=== PATIENT | female | born 1990 | race Caucasian/White ===

== ENCOUNTER → 2021-03-16 17:40 | Outpatient (BNVA) | payer MEDICARE, MEDICAID, SELFPAY | PROVIDERS: Visit Provider Nurse Practitioner Family | DX: Z32.00 Encounter for pregnancy test, result unknown (principal); Z97.5 Presence of (intrauterine) contraceptive device; Z30.011 Encounter for initial prescription of contraceptive pills | CPT/HCPCS: 81025 ==

== ENCOUNTER 2022-04-08 22:08 | Inpatient (IN) | payer MEDICARE, OTHER, MEDICAID, SELFPAY ==
[2022-04-08 22:15] VITALS: BP 115/100; PULSE 119; RESP 16; TEMP 36.8; O2SAT 96; BMI 33.4
--- NOTE | 2022-04-08 22:37 | ED.C_ITS ---
Documented by User: Bill Fritz DO 04/08/22 22:44 HPI - Psych General: Chief Complaint: Psychiatric Symptoms Stated Complaint: psych eval Time Seen by Provider: 04/08/22 22:16 Source: patient Mode of arrival: ambulatory Limitations: no limitations History of Present Illness: This patient was referred to the emergency department for mental health evaluation. She allegedly stays in a long-term care facility that is managed by her family members. She states that she has had increasing intensity of voices that are telling her to harm herself or harm others. She had a prior history of auditory hallucinations. She has had episodes where she is cut herself in the past. She states that she has no specific plan on harming her self but she is feeling more stressed and anxious because of the intensity of her hallucinations. She states she has been sleeping normally eating normally and has been taking the medications that are previously prescribed for her. She sees a mental health clinician on a regular basis. MD complaint: suicidal ideation Duration: getting worse Relieving factors: medication Associated psychiatric symptoms: suicidal ideation and auditory hallucinations Associated symptoms: Reports auditory hallucinations, depression and suicidal ideation If self harm: admits thoughts of self harm Review of Systems Const: Denies: fever(s) or chills Eyes: Denies: change in vision ENMT: Denies: throat pain, odynophagia, nasal discharge or nasal congestion Card: Denies: chest pain, palpitations or irregular heart rhythm Resp: Denies: dyspnea, productive cough or non-productive cough GI: Denies: abdominal pain, nausea or vomiting : Denies: flank pain, difficulty voiding, dysuria or urinary frequency Musc: Denies: neck pain, back pain or extremity pain Skin/Breast: Denies: rash, pruritus or erythema Neuro: Denies: headache(s), numbness in extremities, weakness in extremities, sensory changes or vertigo Psych: Reports: anxiety, depression, mood swings, auditory hallucinations and suicidal ideation Wily/Lymph: Denies: easy bruising or easy bleeding PFSH ED PFSH: Medical History Nightmares Nocturnal enuresis 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 She answers questions in a month monotonous voice. She makes fleeting eye contact. She is cooperative. Const: COMMON NORMALS: average body habitus and alert NUTRITIONAL APPE ARANCE: overweight ORIENTATION/CONSCIOUSNESS: Yes awake, Yes oriented to person and Yes oriented to place HENMT: COMMON NORMALS: normocephalic, moist oral mucous membranes and oropharynx normal HEAD & SCALP: normocephalic FACE & SINUS: normal facial exam Eye: COMMON NORMALS: Equal, round and reactive pupils present, EOMs intact bilaterally and conjunctivae normal CONJUNCTIVA: Yes conjunctivae normal PUPIL: Yes Equal, round and reactive pupils present Neck/C-Spine: COMMON NORMALS: full ROM and no lymphadenopathy Chest: COMMONS NORMALS: normal inspection of the chest Resp: COMMON NORMALS: normal respiratory effort, No retractions and No use of accessory muscles EFFORT & INSPECTION: Yes able to speak in complete sentences Cardio: COMMON NORMALS: regular rate, regular rhythm and Peripheral pulses 2+ throughout RATE: regular rate RHYTHM: regular rhythm PERIPHERAL PULSES: Peripheral pulses 2+ throughout GI: COMMON NORMALS: Normal to inspection, nondistended, normoactive bowel sounds present Back/Pelvis: COMMON NORMALS: thoracic and lumbar spine normal to inspection, no thoracic nor lumbar tenderness and thoraco-lumbar ROM normal Extremity: COMMON NORMALS: normal to inspection, full ROM, capillary refill normal and no pedal edema Neuro: COMMON NORMALS: moves all extremities, no focal motor deficits, no sensory deficits noted and gait normal SENSORIUM/ORIENTATION: Yes alert, Yes oriented to person and Yes oriented to place Psych: ATTITUDE: Yes Withdrawn affect present and Yes evasive ACTIVITY /MOTOR BEHAVIOR: Yes psychomotor agitation, Yes restless and Yes Avoids eye contact (attititude/behavior) SPEECH: Yes soft MOOD & AFFECT: Yes depressed mood and Yes Flat affect present THOUGHT CONTENT: Yes Suicidality present and Yes Hallucination(s) present auditory ATTENTION/CONCENTRATION: Yes attention grossly intact INSIGHT: Limited insight present (Psych) Skin: COMMON NORMALS: no rashes or lesions noted, no wounds and turgor normal GENERAL SKIN EXAM: no rashes or lesions noted and turgor normal Course Reevaluation(s): Reevaluation #1: Intake examination and interview was undertaken and screening laboratories were obtained. Patient will be turned over to Dr. Calderón for disposition. Time: 22:43 Vital Signs: Vital signs: Vital Signs Temperature 98 F 04/09/22 14:00 Pulse Rate 106 H 04/09/22 14:00 Respiratory Rate 16 04/09/22 14:00 Blood Pressure 122/76 04/09/22 14:00 Pulse Oximetry 97 04/09/22 14:00 Oxygen Delivery Me thod 04/09/22 14:00 MDM - Psych Medical Decision Making Patient with a history of known mental health disorder characterized as bipolar with schizophrenic features was referred to the emergency department from her long-term care facility because of increased intensity of auditory hallucinations and suicidal ideations. She will be medically screened and at that point determine if she is suitable to be admitted for further mental health evaluation. Her suicidality is certainly unclear and will need additional evaluation. Lab Data : 04/08/22 22:49 04/08/22 22:49 Laboratory Results WBC 10.5 10^3/uL (4.0-10.0) H 04/08/22 22:49 RBC 4.54 10^6/uL (4.1-5.3) 04/08/22 22:49 Hgb 13.4 g/dL (11.5-15.3) 04/08/22 22:49 Hct 42.5 % (37.0-47.0) 04/08/22 22:49 MCV 93.6 fl (81-99) 04/08/22 22:49 MCH 29.5 pg (28.0-34.0) 04/08/22 22:49 MCHC 31.5 g/dL (30.0-36.0) 04/08/22 22:49 RDW 12.8 % (12.1-15.1) 04/08/22 22:49 Plt Count 239 10^3/cmm (130-400) 04/08/22 22:49 MPV 9.8 fL (7.4-10.4) 04/08/22 22:49 Neut % (Auto) 62.7 % 04/08/22 22:49 Lymph % (Auto) 26.9 % 04/08/22 22:49 [place] % (Auto) 9.3 % 04/08/22 22:49 Eos % (Auto) 0.2 % 04/08/22 22:49 Baso % (Auto) 0.5 % 04/08/22 22:49 Neut # (Auto) 6.61 10^3/uL (1.8-7.7) 04/08/22 22:49 Lymph # (Auto) 2.8 10^3/uL (0.8-4.8) 04/08/22 22:49 [place] # (Auto) 1.0 10^3/uL (0.2-0.9) H 04/08/22 22:49 Eos # (Auto) 0.0 10^3/uL (0.0-0.8) 04/08/22 22:49 Baso # (Auto) 0.1 10^3/uL (0.0-0.1) 04/08/22 22:49 Nucleated RBC % (auto) 0 % 04/08/22 22:49 Nucleated RBCs # 0.0 /100WBC 04/08/22 22:49 Sodium 141 mmol/L (136-145) 04/08/22 22:49 Potassium 4.0 mmol/L (3.5-5.1) 04/08/22 22:49 Chloride 106 mmol/L (98-107) 04/08/22 22:49 Carbon Dioxide 23 mmol/L (22-29) 04/08/22 22:49 Anion Gap 16.0 (5-19) 04/08/22 22:49 BUN 14 mg/dL (6-20) 04/08/22 22:49 Creatinine 0.8 mg/dL (0.5-0.9) 04/08/22 22:49 GFR Calculation 82.1 mL/min (90-130) L 04/08/22 22:49 Glucose 119 mg/dL (65-115) H 04/08/22 22:49 Calculated Osmolality 294 mOsm/kg (285-295) 04/08/22 22:49 Calcium 9.0 mg/dL (8.5-10.5) 04/08/22 22:49 Total Bilirubin 0.2 mg/dL (0.15-1.2) 04/08/22 22:49 AST 13 U/L (0-32) 04/08/22 22:49 ALT 11 U/L (0-33) 04/08/22 22:49 Alkaline Phosphatase 63 U/L (35-105) 04/08/22 22:49 Total Protein 6.7 g/dL (6.6-8.7) 04/08/22 22:49 Albumin 4.0 g/dL (3.5-5.2) 04/08/22 22:49 Globulin 2.7 g/dL (1.3-4.6) 04/08/22 22:49 HCG, Qual Negative (Negative) 04/08/22 22:35 Salicylates < 0.3 mg/dL (3-10) L 04/08/22 22:49 Acetaminophen < 5.0 ug/mL (10-30) L 04/08/22 22:49 Valproic Acid 65.0 ug/mL (50-100) 04/08/22 22:49 Hanson 0.9 mmol/L (0.6-1.2) 04/08/22 22:49 Discharge Plan Discharge Patient Disposition: Admitted As Inpatient Admit Provider: Lincoln Hightower Clinical Impression: Suicidal ideation, Bipolar disorder Condition: Stable Coding Level of Care Code ED Pediatric Sports Medicine Specialist for Chg Fwd Exam Comprehensive Documented by User: Renny Calderón DO 04/09/22 14:40 HPI - Psych General: Chief Complaint: Psychiatric Symptoms Stated Complaint: psych eval Time Seen by Provider: 04/08/22 22:16 PFS ED PFSH: Medical History Nightmares Nocturnal enuresis 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 Psychiatric care Schizophrenia, chronic condition Social History Smoking and tobacco status: former smoker Alcohol intake: former Course Vital Signs: Vital signs: Vital Signs Temperature 98 F 04/09/22 14:00 Pulse Rate 106 H 04/09/22 14:00 Respiratory Rate 16 04/09/22 14:00 Blood Pressure 122/76 04/09/22 14:00 Pulse Oximetry 97 04/09/22 14:00 Oxygen Delivery Me thod 04/09/22 14:00 MDM - Psych Medical Decision Making Patient with a history of known mental health disorder characterized as bipolar with schizophrenic features was referred to the emergency department from her long-term care facility because of increased intensity of auditory hallucinations and suicidal ideations. She will be medically screened and at that point determine if she is suitable to be admitted for further mental health evaluation. Her suicidality is certainly unclear and will need additional evaluation. Spoke with psychiatry. This patient has a legal guardian, who wishes the patient to be evaluated inpatient by psychiatry. She is clearly hallucinating. She has a long history of mental health disease. At one point, she became agitated. She actually tried to elope. She was nonviolent in doing so. She was given an injection of Geodon and midazolam following this with good results. She rested peacefully following that. Medically, she is stable. As she had made suicidal statements, is clearly mentally unwell, and at risk for self harm given her past history, she will need to stay for psychiatric evaluation. Psychiatry agrees. Lab Data : 04/08/22 22:49 04/08/22 22:49 Laboratory Results WBC 10.5 10^3/uL (4.0-10.0) H 04/08/22 22:49 RBC 4.54 10^6/uL (4.1-5.3) 04/08/22 22:49 Hgb 13.4 g/dL (11.5-15.3) 04/08/22 22:49 Hct 42.5 % (37.0-47.0) 04/08/22 22:49 MCV 93.6 fl (81-99) 04/08/22 22:49 MCH 29.5 pg (28.0-34.0) 04/08/22 22:49 MCHC 31.5 g/dL (30.0-36.0) 04/08/22 22:49 RDW 12.8 % (12.1-15.1) 04/08/22 22:49 Plt Count 239 10^3/cmm (130-400) 04/08/22 22:49 MPV 9.8 fL (7.4-10.4) 04/08/22 22:49 Neut % (Auto) 62.7 % 04/08/22 22:49 Lymph % (Auto) 26.9 % 04/08/22 22:49 [place] % (Auto) 9.3 % 04/08/22 22:49 Eos % (Auto) 0.2 % 04/08/22 22:49 Baso % (Auto) 0.5 % 04/08/22 22:49 Neut # (Auto) 6.61 10^3/uL (1.8-7.7) 04/08/22 22:49 Lymph # (Auto) 2.8 10^3/uL (0.8-4.8) 04/08/22 22:49 [place] # (Auto) 1.0 10^3/uL (0.2-0.9) H 04/08/22 22:49 Eos # (Auto) 0.0 10^3/uL (0.0-0.8) 04/08/22 22:49 Baso # (Auto) 0.1 10^3/uL (0.0-0.1) 04/08/22 22:49 Nucleated RBC % (auto) 0 % 04/08/22 22:49 Nucleated RBCs # 0.0 /100WBC 04/08/22 22:49 Sodium 141 mmol/L (136-145) 04/08/22 22:49 Potassium 4.0 mmol/L (3.5-5.1) 04/08/22 22:49 Chloride 106 mmol/L (98-107) 04/08/22 22:49 Carbon Dioxide 23 mmol/L (22-29) 04/08/22 22:49 Anion Gap 16.0 (5-19) 04/08/22 22:49 BUN 14 mg/dL (6-20) 04/08/22 22:49 Creatinine 0.8 mg/dL (0.5-0.9) 04/08/22 22:49 GFR Calculation 82.1 mL/min (90-130) L 04/08/22 22:49 Glucose 119 mg/dL (65-115) H 04/08/22 22:49 Calculated Osmolality 294 mOsm/kg (285-295) 04/08/22 22:49 Calcium 9.0 mg/dL (8.5-10.5) 04/08/22 22:49 Total Bilirubin 0.2 mg/dL (0.15-1.2) 04/08/22 22:49 AST 13 U/L (0-32) 04/08/22 22:49 ALT 11 U/L (0-33) 04/08/22 22:49 Alkaline Phosphatase 63 U/L (35-105) 04/08/22 22:49 Total Protein 6.7 g/dL (6.6-8.7) 04/08/22 22:49 Albumin 4.0 g/dL (3.5-5.2) 04/08/22 22:49 Globulin 2.7 g/dL (1.3-4.6) 04/08/22 22:49 HCG, Qual Negative (Negative) 04/08/22 22:35 Salicylates < 0.3 mg/dL (3-10) L 04/08/22 22:49 Acetaminophen < 5.0 ug/mL (10-30) L 04/08/22 22:49 Valproic Acid 65.0 ug/mL (50-100) 04/08/22 22:49 Hanson 0.9 mmol/L (0.6-1.2) 04/08/22 22:49 Discharge Plan Discharge Patient Disposition: Admitted As Inpatient Admit Provider: Lincoln Hightower Clinical Impression: Suicidal ideation, Bipolar disorder Condition: Stable Coding Level of Care Code ED Pediatric Sports Medicine Specialist for Chg Fwd Exam Comprehensive
--- NOTE | 2022-04-08 23:00 | PC.NURSE ---
Pt began pacing in room. Security and this RN notified and to room. Pt in corner of room, hit head on wall. NO obvious injury noted. Pt has red toure to left forearm. When questioned about them she pulled out a small piece of plastic and handed it to security. Security checked for anything further. notified. Orders received. Pt able to be verbally deescalated. Requested something to calm down.
[2022-04-08 23:01] LABS: Basophils # 0.1 10^3/uL (0.0-0.1); Basophils % 0.5 %; Eosinophils % 0.2 %; Hematocrit 42.5 % (37.0-47.0); Hemoglobin 13.4 g/dL (11.5-15.3); Lymphocytes # 2.8 10^3/uL (0.8-4.8); Lymphocytes % 26.9 %; Mean Corpuscular HGB Conc 31.5 g/dL (30.0-36.0); Mean Corpuscular Hemoglobin 29.5 pg (28.0-34.0); Mean Corpuscular Volume 93.6 fl (81-99); Mean Platelet Volume 9.8 fL (7.4-10.4); Monocytes % 9.3 %; Neutrophils # 6.61 10^3/uL (1.8-7.7); Neutrophils % 62.7 %; Nucleated Red Blood Cells % 0 %; Platelet Count 239 10^3/cmm (130-400); Red Blood Count 4.54 10^6/uL (4.1-5.3); Red Cell Distribution Width 12.8 % (12.1-15.1); White Blood Count 10.5 10^3/uL (4.0-10.0)
[2022-04-08] MEDS: OLANZapine 5 mg ODT PO (23:06)
[2022-04-08 23:09] LABS: HCG Qualitative Urine. Negative (Negative)
[2022-04-08 23:21] LABS: Alanine Aminotransferase 11 U/L (0-33); Alkaline Phosphatase 63 U/L (35-105); Aspartate Amino Transferase 13 U/L (0-32); Blood Urea Nitrogen 14 mg/dL (6-20); Carbon Dioxide 23 mmol/L (22-29); Chloride 106 mmol/L (98-107); Globulin 2.7 g/dL (1.3-4.6); Glomerular Filtration Rate 82.1 mL/min (90-130); Glucose 119 mg/dL (65-115); Osmolality Calculated 294 mOsm/kg (285-295); Sodium 141 mmol/L (136-145); Total Bilirubin 0.2 mg/dL (0.15-1.2); Total Protein 6.7 g/dL (6.6-8.7)
[2022-04-08 23:22] LABS: Acetaminophen < 5.0 ug/mL (10-30); Salicylate < 0.3 mg/dL (3-10)
--- NOTE | 2022-04-09 00:23 | PC.NURSE ---
Pt getting more anxious. Wants to go home. Family contacted to request POFareed. notified
[2022-04-09] MEDS: ziprasidone 20 mg/mL SDV IM (00:48)
[2022-04-09] MEDS: midazolam 1 mg/mL INJ 2 mL 2 MG IM (00:48)
--- NOTE | 2022-04-09 00:50 | PC.NURSE ---
Spoke with mother who is POA. States she wants pt admitted. Pt did admit to hearing voices telling her to hurt other people and herself. Pt has now attempted to run two times. Security remains at bedside and pt is redirected.
[2022-04-09 01:27] VITALS: BP 125/81; PULSE 100; RESP 16; O2SAT 95
[2022-04-09 01:33] LABS: Lithium 0.9 mmol/L (0.6-1.2)
[2022-04-09 02:23] VITALS: BP 131/84; PULSE 106; RESP 18; O2SAT 98
[2022-04-09 06:00] VITALS: BP 148/94; PULSE 118; RESP 24; TEMP 36.6; O2SAT 97
[2022-04-09] MEDS: fixodent 39 gm Tube 1 APPLIC DENTAL (06:02)
[2022-04-09] MEDS: diphenhydrAMINE 50 mg/mL SDV 1mL IM (07:06)
[2022-04-09] MEDS: haloperidol inj 5 mg/mL INJ 1 mL IM (07:07)
[2022-04-09] MEDS: LORazepam 2 mg/mL INJ 1 mL IM (07:07)
--- NOTE | 2022-04-09 07:08 | PC.NURSE ---
Attempted to call Guardian multiple times. Spoke with guardian at appx [phone]. guardian verbalized consent over telephone for any medications needed and to continue current medications. [facility] information to [phone] atttoña burkett for signatures.
--- NOTE | 2022-04-09 07:50 | PC.NURSE ---
Pt began reporting auditory hallucinations telling her to hurt herself. She found a bendy pen and began attempting to scratch her arms with it. this nurse got the pen from her. Patient refuses to contract for safety. pt placed on 1:1 after contacting house calls nurse practitioner.
[2022-04-09] MEDS: metoprolol succinate ER (24 HR) 50 mg Tablet PO (09:31)
[2022-04-09] MEDS: prenatal vitamin Capsule 1 CAP PO (09:31)
[2022-04-09] MEDS: chlorPROMazine 50 mg Tablet PO ×3 (09:31→21:15)
[2022-04-09] MEDS: cyanocobalamin 1,000 mcg Tablet 500 MCG PO (09:32)
[2022-04-09] MEDS: docusate sodium 100 mg Capsule PO ×2 (09:32→17:26)
[2022-04-09] MEDS: cholecalciferol (vitamin D3) 1,000 unit Tablet 1000 UNIT PO (09:32)
[2022-04-09] MEDS: levothyroxine 25 mcg Tablet PO (09:32)
[2022-04-09] MEDS: pantoprazole DR 40 mg Tablet PO (09:32)
[2022-04-09] MEDS: cloZAPine 100 mg Tablet 200 MG PO ×2 (09:35→21:14)
[2022-04-09] MEDS: divalproex DR 250 mg Tablet 750 MG PO ×2 (09:35→21:14)
[2022-04-09] MEDS: BuSPIRONE 10 mg Tablet PO ×2 (09:35→21:15)
[2022-04-09] MEDS: lithium carbonate ER 450 mg Tablet PO ×2 (09:35→21:14)
[2022-04-09] MEDS: oxybutynin 5 mg Tablet PO ×2 (09:37→21:18)
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
--- NOTE | 2022-04-09 12:40 | PC.NURSE ---
NEW ORDER PT CONTINUES TO DENYSI/HI AND AVH AT THIS TIME. SHE CONTINUES TO BE CONTRACTED FOR SAFETY. NEW ORDERS RECEIVED TO DISCONTINUE ONE TO ONE SITTER. SITTER WAS REMOVED 1240 PM. SUPPORT WAS VOICED
[2022-04-09] MEDS: benztropine 1 mg Tablet PO (12:49)
[2022-04-09] MEDS: hyDROXYzine 25 mg Capsule 50 MG PO (13:37)
[2022-04-09] MEDS: OLANZapine 5 mg ODT PO (13:37)
--- NOTE | 2022-04-09 13:40 | PC.NURSE ---
PRN MEDICATIONS PT WAS MOVED TO 155-2 DUE TO EXIT SEEKING. PT DID ATTEMPT TO GRAB DOOR WHEN STAFF WAS LEAVING. PT WAS ASSISTED BACK TO ROOM. PHYSICIAN WAS NOTIFIED OF EXIT SEEKING BEHAVIORS. PT THEN AGAIN RAN DOWN THE ORTIZ TOWARDS THE DOUBLE DOORS WHEN THEY WERE OPENED AGAIN FOR STAFF TO LEAVE. PT WAS UNABLE TO REACH DOOR. DOOR WAS SECURED AND PT WAS ASSISTED TO 155/2 TO SOUTH SIDE WHERE PT WILL NOT BE ABLE TO EXIT FACILITY. ONCE PT WAS MOVE PT REPORTED HIGH ANXIETY. ZYDIS 5 MG AND VISTARIL 50 MG WAS GIVEN PO ORDERED FOR SEVERE ANXIETY. PT WAS GIVEN JUICE AND A SNACK REQUESTED.
[2022-04-09 14:00] VITALS: BP 122/76; PULSE 106; RESP 16; TEMP 36.6; O2SAT 97
--- NOTE | 2022-04-09 14:46 | PC.NURSE ---
PT CAME TO NURSES STATION ON THREE DIFFERENT OCCASIONS WITH THE BENDABLE PENS. PT GAVE THEM TO STAFF WILLINGLY. PT TOLD STAFF SHE HAS AH TELLING HER TO HARM HERSELF. PT STATES SHE IS IGNORING THEM AND WILL NOT HARM HERSELF. PT CONTRACTS FOR SAFETY. PT IS SITTING ON THE BENCH BY THE NURSES STATION.
[2022-04-09] MEDS: haloperidol 5 mg Tablet PO (15:20)
--- NOTE | 2022-04-09 15:21 | PC.NURSE ---
PRN MEDICATION PT CONTINUES TO STATE I WANNA HURT MYSELF, THIS RN TO ROOM AND SPOKE IN DEPTH, PT WAS UNABLE TO CONTRACT FOR SAFETY. DUE TO PT BEING UNABLE TO CONTRACT FOR SAFETY PT WAS PLACED BACK ON A ONE ON ONE. DR. HELTON NOTIFIED OF. NEW ORDERS RECEIVED TO START ON AT 1525. ORDERS PLACED.
--- NOTE | 2022-04-09 15:27 | PC.NURSE ---
15 MINUTE CHECKS WILL CONTINUE ON VIA PAPER
--- NOTE | 2022-04-09 16:36 | PC.NURSE ---
PRN MEDICATION PT CONTINUES TO STATES SHE IS HEARING VOICES TELLING HER TO CUT SELF. REPORTS INCREASED ANXIETY WELL. PT WAS GIVEN HALDOL 5 MG ORDERED WITH LITTLE EFFECT NOTED.
[2022-04-09] MEDS: efferdent effervescent 1 EACH DENTAL (20:05)
[2022-04-09 20:19] VITALS: BP 116/80; PULSE 96; RESP 18; TEMP 36.4; O2SAT 95
[2022-04-09] MEDS: LORazepam 0.5 mg Tablet PO (21:14)
[2022-04-09] MEDS: trazodone 50 mg Tablet PO (21:14)
[2022-04-09] MEDS: amlodipine 5 mg Tablet PO (21:15)
[2022-04-09] MEDS: prazosin 1 mg Capsule 4 MG PO (21:15)
[2022-04-10 06:00] VITALS: BP 110/78; PULSE 85; RESP 16; TEMP 36.8; O2SAT 97
--- NOTE | 2022-04-10 06:23 | W.PM.NPUPNS ---
Subjective NPU Subjective: Patient presents today reporting that she is doing better. She denies any suicidal thoughts or intent. We discussed the fact that we would need to observe her off of one-to-one before we can consider sending her home and so we would need to have a pattern of behaviors that suggest that that is safe. She denied any specific issues at this time and there are no negative reports from the one-to-one provider. Mental Status Exam MSE Comments: This is an obese white female in hospital scrubs with limited grooming and eye contact. No abnoraml movements except for psychomotor retardation. Mostly cooperative with exam in mild distress. Speech is limited and child like. Mood described as okay, affect is subdued. Thought process, organized. Thought content: patient denied suicidal or homicidal ideation, reports paranoia but no delusions noted and endorses auditory hallucinations but no visual hallucinations. Attention and concentration are intact and memory appeared mostly reliable but none were formally tested. She is alert and oriented three times. Insight and judgment impaired. Impulse control is impaired. Intellectual ability is limited versus impaired. Vitals/I&O/Wt Last Vital Signs Temp 97.6 F 04/09/22 20:19 Pulse 96 04/09/22 20:19 Resp 18 04/09/22 20:19 BP 116/80 04/09/22 20:19 Pulse Ox 95 04/09/22 20:19 O2 Del Method 04/09/22 14:00 Weight last 48 hrs Weight 93.894 kg Data NPU : 04/08/22 22:49 04/08/22 22:49 A&P Assessment and plan (1) Suicidal ideation: Status: Acute (2) Bipolar disorder: Status: Acute (3) Nocturnal enuresis: Status: Acute (4) Nightmares: Status: Acute (5) Intellectual disability: Status: Acute Plan This is a 32 year old white female with a history of trauma, auditory hallucinations and genetic loading for mental health and addiction issues who presents with worsening auditory hallucinations reporting these voices encourage suicidal and homicidal ideation, active suicidal ideation and paranoia but reporting she believes she is fine to be discharged at this time. 1. Continue current medications 2. Encourage individual, group and milieu therapy 3. Continue one-to-one for safety given her intermittent reports of inability to keep her self safe on the unit. 4. Clearly appears that the major challenge here is intellectual disability versus borderline intellectual ability plus the presence of borderline personality disorder. We will need to understand if this is a regular pattern or just props up whether something specifically triggered this current pattern. Involuntary Hold Information 96 Hour Hold: 96 Hour Involuntary Admission: No Attestations NPU Medical Necessity Statement*: Inpatient hospitalization is medically necessary and the clinically appropriate intervention at this time. We will monitor medications and make changes as indicated. Likely length of stay is three to five days. Coding Level of Care Code Acute Warp Knitter for [facility] F[facility] Diagnoses Suicidal ideation R45.851 Bipolar disorder F31.9 Nocturnal enuresis N39.44 Nightmares F51.5 Intellectual disability F79
[2022-04-10] MEDS: buPROPion XL (24 HR) 300 mg Tablet PO (06:25)
[2022-04-10] MEDS: BuSPIRONE 10 mg Tablet PO (10:15)
[2022-04-10] MEDS: pantoprazole DR 40 mg Tablet PO (10:15)
[2022-04-10] MEDS: lithium carbonate ER 450 mg Tablet PO (10:15)
[2022-04-10] MEDS: oxybutynin 5 mg Tablet PO (10:15)
[2022-04-10] MEDS: prenatal vitamin Capsule 1 CAP PO (10:15)
[2022-04-10] MEDS: docusate sodium 100 mg Capsule PO ×2 (10:15→17:23)
[2022-04-10] MEDS: cloZAPine 100 mg Tablet 200 MG PO (10:15)
[2022-04-10] MEDS: fixodent 39 gm Tube 1 APPLIC DENTAL (10:16)
[2022-04-10] MEDS: cyanocobalamin 1,000 mcg Tablet 500 MCG PO (10:16)
[2022-04-10] MEDS: metoprolol succinate ER (24 HR) 50 mg Tablet PO (10:16)
[2022-04-10] MEDS: chlorPROMazine 50 mg Tablet PO ×2 (10:16→15:09)
[2022-04-10] MEDS: levothyroxine 25 mcg Tablet PO (10:16)
[2022-04-10] MEDS: divalproex DR 250 mg Tablet 750 MG PO (10:25)
[2022-04-10] MEDS: cholecalciferol (vitamin D3) 1,000 unit Tablet 1000 UNIT PO (10:26)
[2022-04-10] MEDS: haloperidol inj 5 mg/mL INJ 1 mL IM ×2 (12:28→21:23)
--- NOTE | 2022-04-10 12:34 | PC.NURSE ---
12:28 administered 5mg IM Haldol to Right deltoid, pt is experiencing Auditory commands to harm herself. Pt did run away from staff before administering the medication.
[2022-04-10 14:00] VITALS: BP 108/79; PULSE 88; RESP 14; TEMP 36.6; O2SAT 96
[2022-04-10] MEDS: benztropine 1 mg Tablet PO (15:09)
[2022-04-10] MEDS: acetaminophen 325 mg Tablet 650 MG PO (16:53)
--- NOTE | 2022-04-10 18:21 | PC.NURSE ---
PT PLACED BACK TO ONE ON ONE SITTER DUE TO BEHAVIORS TODAY, PT REFUSING PO MEDS, BOLTING OUT THE UNIT DOORS, MAKING STATEMENTS TO THIS NURSE AND OTHER STAFF ABOUT JUST WANTING TO HANG HERSELF. PT KEEPS RUNNING INTO ROOM AND SHUTTING DOOR, PT WILL NOT FOLLOW DIRECTIONS, THIS NURSE WALKED IN ON PT AND SHE HAD SHEET WRAPPED AROUND NECK, ALL BEDDING REMOVED FROM BEDROOM AND PT INSTRUCTED TO SIT ON BENCH BY NURSES STATION UNTILL SITTER ARRIVED, PT THEN CAME TO NURSES STATION AND STATES SHE FEELS LIKE TAKING OFF BRA AND HANGING HERSELF, AFTER DISCUSSION FOR 30MIN WITH PT SHE FINALLY AGREED TO REMOVE BRA. PT ROOM RECHECKED AND PT SCRUB POCKET RECHECKED FOR ANY MATERIALS TO SELF HARM
[2022-04-10] MEDS: efferdent effervescent 1 EACH DENTAL (19:12)
[2022-04-10 19:46] VITALS: BP 111/78; PULSE 98; RESP 16; TEMP 36.9; O2SAT 96
[2022-04-10] MEDS: LORazepam 2 mg/mL INJ 1 mL IM (21:22)
[2022-04-10] MEDS: diphenhydrAMINE 50 mg/mL SDV 1mL IM (21:23)
--- NOTE | 2022-04-10 22:00 | PC.NURSE ---
AT 2114, VARUN CALLED FOR ASSISTANCE TO THIS PT'S ROOM. PT HAD WENT INTO HER BATHROOM TO GO TO THE BATHROOM . PT DID NOT COME OUT OF THE BATHROOM AFTER URINATING SO CORRESPONDENCE ANALYST CHECKED ON PT BY LOOKING UNDER THE BATHROOM DOOR AND NOTING PT SITTING ON THE FLOOR. CORRESPONDENCE ANALYST OPENED THE BATHROOM DOOR TO FIND PT SITTING CROSS LEGGED ON THE FLOOR WITH THE SHOWER TIFFANY WRAPPED LOOSLY AROUND HER NECK. CORRESPONDENCE ANALYST YELLED OUT FOR ADDITIONAL STAFF ASSISTANCE. CHARGE NURSE AND OTHER STAFF ARRIVED TO ROOM, FINDING PT STILL SITTING ON THE FLOOR, VARUN HAD REMOVED SHOWER TIFFANY FROM THE PT. PT WAS ASKED WHY ARE YOU DOING THIS? BY THE CHARGE NURSE. PT STATED SHE WANTED TO GO HOME. ATTEMPT TO EDUCATE PT THAT THIS TYPE OF BEHAVIOR IS NOT GOING TO SEND HER HOME. PT HAS BEEN REFUSING HER SCHEDULED ORAL MEDICATIONS ALL DAY. CHARGE NURSE TRIED SEVERAL TIMES TO PLEASE TAKE HER MEDICATIONS, TO WHICH PT ANSWERED NO EACH TIME. PT WAS THEN GIVEN THE CHOICE OF EITHER TAKING HER SCHEDULED MEDICATIONS OR RECEIVING THE B52 SHOTS. PT AGAIN STATED SHE WAS NOT GOING TO TAKE HER ORAL MEDICATIONS SO CHARGE NURSE DELEGATED ANOTHER STAFF MEMBER TO PREPARE THE IM MEDICATIONS. SECURITY WAS CALLED FOR STANDBY. AT 2122, BENADRYL 50MG IM, ATIVAN 2MG IM AND HALDOL 5MG IM GIVEN WITH OUT DIFFICULTY. PT IS RESTING QUIETLY IN HER ROOM AT THIS TIME. BUSINESS PROCESS SPECIALIST NOTIFIED. DOCTOR HELTON NOTIFIED BY CHARGE NURSE.
--- NOTE | 2022-04-10 23:29 | NUR.SHIFT ---
Pt presents irritable and uncooperative. pt refusing nighttime medication. Pt verbalizing voices telling her to kill myself . Pt reports I just want to go home. This nurse was able to get pt to talk about herself a bit. Pt reports her brother a month or so ago and that is when the voices got bad. I had another brother that before, so now I have two brothers gone and I want to see them. Pt reports multiple family member working at the facility she lives at and states, I get to see them alot, but I really want to go home to my mom's house. Pt went into restroom and grabbed the shower curtain. sitter was attempting to get it away from her and staff all responded. pt coaxed to let go of the shower curtain but still refused scheduled medications. pt given choice of IM medication or oral medication. pt refused oral. pt then given the option of having im medication in arms or hips. pt chose hips. ims given without a hold. 1:[address] during entire situation and currently.
[2022-04-11] MEDS: buPROPion XL (24 HR) 300 mg Tablet PO (05:17)
[2022-04-11 06:00] VITALS: BP 121/84; PULSE 107; RESP 18; TEMP 36.4; O2SAT 97
[2022-04-11] MEDS: cyanocobalamin 1,000 mcg Tablet 500 MCG PO (08:52)
[2022-04-11] MEDS: cholecalciferol (vitamin D3) 1,000 unit Tablet 1000 UNIT PO (08:52)
[2022-04-11] MEDS: levothyroxine 25 mcg Tablet PO (08:52)
[2022-04-11] MEDS: chlorPROMazine 50 mg Tablet PO ×3 (08:52→19:58)
[2022-04-11] MEDS: prenatal vitamin Capsule 1 CAP PO (08:52)
[2022-04-11] MEDS: pantoprazole DR 40 mg Tablet PO (08:52)
[2022-04-11] MEDS: BuSPIRONE 10 mg Tablet PO ×2 (08:52→19:56)
[2022-04-11] MEDS: divalproex DR 250 mg Tablet 750 MG PO ×2 (08:53→19:55)
[2022-04-11] MEDS: cloZAPine 100 mg Tablet 200 MG PO ×2 (08:53→19:56)
[2022-04-11] MEDS: metoprolol succinate ER (24 HR) 50 mg Tablet PO (08:53)
[2022-04-11] MEDS: oxybutynin 5 mg Tablet PO ×2 (08:53→19:57)
[2022-04-11] MEDS: lithium carbonate ER 450 mg Tablet PO ×2 (08:53→19:58)
[2022-04-11] MEDS: docusate sodium 100 mg Capsule PO ×2 (08:54→16:51)
[2022-04-11] MEDS: acetaminophen 325 mg Tablet 650 MG PO ×2 (09:22→16:51)
--- NOTE | 2022-04-11 10:12 | PC.OT ---
OT EVALUATION ATTEMPTED. 1:1 SITTER REPORTS THAT THE PATIENT HAS JUST FALLEN ASLEEP. WILL ATTEMPT AGAIN AT A LATER TIME.
--- NOTE | 2022-04-11 10:47 | PC.NURSE ---
Nursing Assessment Patient was resting in bed. She stated she didn't sleep well last night. Overnight staff said she didn't sleep much either. Patient stated she was having suicidal ideations and had auditory hallucinations that were telling her to kill herself. When asked if she had a plan she stated, I don't want to talk about it. Denied any homicidal ideations or visual hallucinations. Patient appears to be withdrawn and reluctant to talk.
[2022-04-11] MEDS: loratadine 10 mg Tablet PO (10:49)
--- NOTE | 2022-04-11 11:41 | W.PM.NPUPNS ---
Subjective NPU Subjective: Patient is a 32-year-old white female with mild cognitive impairment on multiple psychiatric medications with poor impulse control admitted with suicidal thoughts and unsafe behavior while residing in the assisted. Patient had continue to engage in impulsive behavior has she attempted to run into the bathroom and pulled the shower curtain around her neck in an attempt to hang herself earlier today. She continued to be unable to describe having any particular feelings regarding her behavior. She did not express any desire to return to her assisted today. The staff had spoken briefly with the patient's legal guardian, her mother and discussed potential simplification of her medications as these medications had potential for causing more significant side effects with no clear noted benefit with the multiple psychiatric medications. She had continued difficulties with falling asleep despite her multiple medications. Mental Status Exam MSE Comments: This is an obese white female in hospital scrubs with poor grooming and minimal eye contact. No abnormal involuntary motor movements except for psychomotor retardation. Uncooperative with exam and in mild distress. Speech is limited and child like. Mood described as okay, affect is flat. Thought process, organized and superficial. Thought content: patient denied suicidal or homicidal ideation, reports paranoia but no delusions noted and endorses auditory hallucinations but no visual hallucinations. Attention and concentration is poor and memory appeared mostly reliable but none were formally tested. She is alert and oriented three times. Insight and judgment are feeble. Impulse control is impaired. Intellectual ability is commensurate with mild cognitive impairment. Vitals/I&O/Wt Last Vital Signs Temp 97.5 F L 04/11/22 06:00 Pulse 107 H 04/11/22 06:00 Resp 18 04/11/22 06:00 BP 121/84 04/11/22 06:00 Pulse Ox 97 04/11/22 06:00 O2 Del Method 04/10/22 14:00 Weight last 48 hrs Weight 95.527 kg Data NPU : 04/08/22 22:49 04/08/22 22:49 A&P Assessment and plan (1) Suicidal ideation: Status: Acute (2) Bipolar disorder: Status: Acute (3) Nocturnal enuresis: Status: Acute (4) Nightmares: Status: Acute (5) Intellectual disability: Status: Acute Plan This is a 32 year old white female with a history of trauma, auditory hallucinations and genetic loading for mental health and addiction issues who presents with worsening auditory hallucinations reporting these voices encourage suicidal and homicidal ideation, active suicidal ideation and paranoia but reporting she believes she is fine to be discharged at this time. 1. Continue current medications, with reduction of medications likely secondary to polypharmacy issues. She already has developed tardive dyskinesia. 2. Encourage individual, group and milieu therapy 3. Continue one-to-one for safety given her intermittent reports of inability to keep her self safe on the unit. Involuntary Hold Information 96 Hour Hold: 96 Hour Involuntary Admission: No Attestations NPU Medical Necessity Statement*: Inpatient hospitalization is medically necessary and the clinically appropriate intervention at this time. We will monitor medications and make changes as indicated. Likely length of stay is three to five days. Coding Level of Care Code Established Pt Acute Unclaimed Property Officer for Rob Matson Patient Type Established History Problem Focused Exam Problem Focused Medical Decision Making Straight Forward Diagnoses Suicidal ideation R45.851 Bipolar disorder F31.9 Nocturnal enuresis N39.44 Nightmares F51.5 Intellectual disability F79
[2022-04-11] MEDS: OLANZapine 5 mg ODT PO (13:11)
--- NOTE | 2022-04-11 13:29 | PC.NURSE ---
PT WAS AMBULATING DOWN ORTIZ, SAW THAT THE ACUTE SIDE DOOR WAS OPENED TO TAKE LUNCH TRAYS OUT. PT THEN RAN TOWARDS DOOR, SITTER RAN WITH HER. WHEN PT WAS RUNNING TOWARDS DOOR PT SLIPPED AND SLID INTO THE FLOOR. PT DID NOT GET OUT OF DOOR. RN ASSESSED PT AND OBSERVED SLIGHT REDNESS LEFT ELBOW. PT DID NOT HIT HEAD AND DENIES INJURY. VITALS FOLLOW 96.7, 85, 20, 97%RA AND 131/85. PT WAS ASSISTED UP WITH TWO ASSIST AND TAKEN TO BENCH TO SIT DOWN. PT WAS OFFERED ANXIETY MEDICATION TO CALM DOWN BUT REFUSED SEVERAL TIMES. PT THEN AGREED TO TAKE ANXIETY MEDS. ZYDIS 5 MG WAS GIVEN ORDERED. ONE ON ONE CARE AND OBSERVATION WILL CONTINUE FOR SAFETY/ELOPEMENT RISK/SELF HARM. PT HAS BEEN UP AND AMBULATING BRISKLY UP AND DOWN THE ORTIZ SINCE. WILL CONTINUE TO MONITOR CLOSELY. DR. SKY WAS NOTIFIED IN PERSON, NO NEW ORDERS WERE RECEIVED AT THAT TIME.
[2022-04-11 14:00] VITALS: BP 109/73; PULSE 92; RESP 18; TEMP 36.6; O2SAT 94
[2022-04-11] MEDS: benztropine 1 mg Tablet PO (16:51)
[2022-04-11] MEDS: diphenhydrAMINE 50 mg/mL SDV 1mL IM (17:29)
[2022-04-11] MEDS: LORazepam 2 mg/mL INJ 1 mL IM (17:29)
[2022-04-11] MEDS: haloperidol inj 5 mg/mL INJ 1 mL IM (17:29)
--- NOTE | 2022-04-11 18:07 | PC.NURSE ---
BEHAVIOR/ATTEMPT TO SELF HARM GERMAN ALERTED THIS RN THAT PT WAS HITTING THE WINDOW IN HER ROOM WITH FIST. THIS RN CAME TO ASSESS PT AND DEESCALATE. PT DID QUIT HITTING WINDOW BRIEFLY THEN STARTED BACK WHILE SAYING REPEATEDLY I WANT TO GO HOME I WANT TO GO HOME. WHILE TRYING TO EDUCATE PT, PT RAN OUT OF ROOM AT FULL SPEED TO ROOM 170 INTO THE BATHROOM, GRABBED THE SHOWER CURTAIN, WRAPPED IT AROUND HER NECK. THIS RN, GN AND LITZYTER ASSISTED ONE ANOTHER IN TAKING THE SHOWER CURTAIN OFF HER NECK. PT DID NOT ATTEMPT TO FIGHT STAFF, AND LET STAFF REMOVE IT. PT THEN WENT TO HER ROOM, THIS NURSE INFORMED PT THAT WE WERE GETTING A SHOT TO CALM HER DOWN SO SHE WOULD NOT HURT HERSELF AND BE AGITATED. RN ADMINISTERED BENADRYL TO RIGHT DELTOID, GN ADMINISTERED ATIVAN 2 MG AND HALDOL M5 MG TO LEFT DELTOID. SECURITY WAS IN ROOM, PT TOLERATED WELL AND DID NOT FIGHT STAFF. PT WAS GIVEN A CHOCOLATE MILK. PT HAS BEEN UP AMBULATING WITH SITTER SINCE 1729. ROOM 170 WAS CLOSED OFF AND LOCKED SO PT COULD NO LONGER RUN INTO ROOM IN ATTEMPTS TO HARM SELF. NO REDNESS WAS VISUALIZED AROUND NECK. PT DENIES PAIN. PT WILL STILL NOT CONTRACT FOR SAFETY. ONE TO ONE OBSERVATION CONTINUES TO ENSURE SAFETY AND TO ENSURE PT DOES NOT SELF HARM. DR. OKEEFE WAS NOTIFIED NO NEW ORDERS AT THIS TIME.INFANT CHILDCARE PROVIDER WAS NOTIFIED OF ABOVE. ALL QUESTIONS ANSWRED AND SUPPORT WAS VOICED.
[2022-04-11] MEDS: efferdent effervescent 1 EACH DENTAL (19:51)
[2022-04-11] MEDS: prazosin 1 mg Capsule 4 MG PO (19:52)
[2022-04-11 19:55] VITALS: BP 129/82; PULSE 96; RESP 16; TEMP 36.4; O2SAT 97
[2022-04-11] MEDS: amlodipine 5 mg Tablet PO (19:58)
[2022-04-11] MEDS: trazodone 50 mg Tablet PO (19:58)
[2022-04-12 06:00] VITALS: BP 114/79; PULSE 95; RESP 18; TEMP 36.5; O2SAT 95
[2022-04-12] MEDS: acetaminophen 325 mg Tablet 650 MG PO ×4 (06:04→21:43)
[2022-04-12] MEDS: buPROPion XL (24 HR) 300 mg Tablet PO (06:05)
[2022-04-12] MEDS: divalproex DR 250 mg Tablet 750 MG PO ×2 (09:27→20:21)
[2022-04-12] MEDS: cyanocobalamin 1,000 mcg Tablet 500 MCG PO (09:28)
[2022-04-12] MEDS: chlorPROMazine 50 mg Tablet PO ×2 (09:28→15:31)
[2022-04-12] MEDS: prenatal vitamin Capsule 1 CAP PO (09:28)
[2022-04-12] MEDS: loratadine 10 mg Tablet PO (09:28)
[2022-04-12] MEDS: levothyroxine 25 mcg Tablet PO (09:28)
[2022-04-12] MEDS: cloZAPine 100 mg Tablet 200 MG PO ×2 (09:28→20:21)
[2022-04-12] MEDS: cholecalciferol (vitamin D3) 1,000 unit Tablet 1000 UNIT PO (09:28)
[2022-04-12] MEDS: docusate sodium 100 mg Capsule PO ×2 (09:28→18:20)
[2022-04-12] MEDS: lithium carbonate ER 450 mg Tablet PO ×2 (09:28→20:21)
[2022-04-12] MEDS: pantoprazole DR 40 mg Tablet PO (09:29)
[2022-04-12] MEDS: metoprolol succinate ER (24 HR) 50 mg Tablet PO (09:29)
[2022-04-12] MEDS: BuSPIRONE 10 mg Tablet PO ×2 (09:29→20:21)
[2022-04-12] MEDS: oxybutynin 5 mg Tablet PO ×2 (09:30→20:21)
[2022-04-12] MEDS: hyDROXYzine 25 mg Capsule 50 MG PO (11:55)
[2022-04-12] MEDS: haloperidol inj 5 mg/mL INJ 1 mL IM ×2 (13:07→20:39)
[2022-04-12] MEDS: LORazepam 2 mg/mL INJ 1 mL IM ×2 (13:07→20:39)
[2022-04-12] MEDS: diphenhydrAMINE 50 mg/mL SDV 1mL IM ×2 (13:08→20:38)
--- NOTE | 2022-04-12 13:08 | PC.NURSE ---
PT WITH ONE TO ONE SITTER, SITTER ALERTED STAFF SHE NEEDED ASSISTANCE WITH PT IN PT ROOM, THIS NURSE ARRIVED IN ROOM TO SEE PT AT WINDOW THAT SHE WAS PUNCHING WITH CLOSED FIST, PT STATES SHE WANTS TO GO HOME, PT IS LIMITED WITH SPEECH AND ANSWERS, PT STATES SHE WANTS TO CUT HERSELF, THEN PT WAS BANGING HEAD ON WINDOW, PT WAS BROUGHT TO BENCH BY NURSES STATION WHILE PRN MEDS WERE PREPARED BY MED NURSE, PT JUMPED OFF BENCH AND RAN DOWN ORTIZ AND SLID TO THE GROUND, NO INJURY ON ASSESSMENT, PT BROUGHT BACK TO ROOM AND PRN MEDS GIVEN IM, PT GIL WELL. STAYED WITH PT UNTILL PT LAYED DOWN IN BED STATING SHE WAs GOING TO TAKE A NAP. SITTER PRESENT, LINENS PROVIDED WHILE PT IN BED. SITTER TO REMOVE IF PT WAKES
--- NOTE | 2022-04-12 13:09 | PC.NURSE ---
Administered 2mg Ativan IM, 5mg Haldol IM, 50mg Benadryl IM, for pt preforming self harm by banging forehead against the window in room and also beating the window with her closed fist.
[2022-04-12 14:00] VITALS: BP 125/87; PULSE 102; RESP 16; TEMP 36.8; O2SAT 96
--- NOTE | 2022-04-12 18:41 | P.NPUPN_ITS ---
Subjective NPU Subjective: Patient is a 32-year-old white female with mild cognitive impairment on multiple psychiatric medications with poor impulse control admitted with suicidal thoughts and unsafe behavior while residing in the long term. Patient had continue to engage in impulsive behavior as she did continue to require one-to-one after again attempting to elope from the unit. She reported simply today that she wished to return home but could not endorse any appropriate plan for safety. She had continued to struggle with being on the milieu with significant cognitive limitations noted. The patient had reported no side effects from her medication. She did appear to have episodes where she would bang her head on the unit against the window. She continued to require redirection in the milieu. She had been noted to have improved sleep at night with less fatigue noted during the day. Mental Status Exam MSE Comments: This is an obese white female in hospital scrubs with poor grooming and minimal eye contact. She appeared to have significant shaking throughout her body and there was some evidence of psychomotor slowing with no clear parkinsonian movements noted. She remained guarded throughout the exam. Speech is limited and child like. Mood described as okay, affect is flat. Thought process, organized and superficial. Thought content: patient denied suicidal or homicidal ideation, reports continued paranoia but no delusions noted and endorses auditory hallucinations but no visual hallucinations. Attention and concentration is poor and memory appeared mostly reliable but none were formally tested. She is alert and oriented three times. Insight and judgment are feeble. Impulse control is impaired. Intellectual ability is commensurate with mild cognitive impairment. Vitals/I&O/Wt Last Vital Signs Temp 98.3 F 04/12/22 14:00 Pulse 102 H 04/12/22 14:00 Resp 16 04/12/22 14:00 BP 125/87 04/12/22 14:00 Pulse Ox 96 04/12/22 14:00 O2 Del Method 04/11/22 14:00 Data NPU : 04/08/22 22:49 04/08/22 22:49 A&P Assessment and plan (1) Suicidal ideation: Status: Acute (2) Bipolar disorder: Status: Acute (3) Nocturnal enuresis: Status: Acute (4) Nightmares: Status: Acute (5) Intellectual disability: Status: Acute Plan This is a 32 year old white female with a history of trauma, auditory hallucinations and genetic loading for mental health and addiction issues who presents with worsening auditory hallucinations reporting these voices encourage suicidal and homicidal ideation, active suicidal ideation and paranoia but reporting she believes she is fine to be discharged at this time. 1. Continue lithium, clozaril, and depakote, discontinue Thorazine secondary to cardiac concerns, also patient on multiple hypotensive agents that put her at fall risk including, Prazosin, amlodipine, and metoprolol. She already has developed tardive dyskinesia and is not able to get [place] here. Reduced prazosin to 2mg at night, 2. Encourage individual, group and milieu therapy 3. Continue one-to-one for safety given her intermittent reports of inability to keep her self safe on the unit. Involuntary Hold Information 96 Hour Hold: 96 Hour Involuntary Admission: No Attestations NPU Medical Necessity Statement*: Inpatient hospitalization is medically necessary and the clinically appropriate intervention at this time. We will monitor medications and make changes as indicated. Likely length of stay is three to five days. Coding Level of Care Code Established Pt Acute Field Artillery Operations Specialist for Yannickg Fwd Patient Type Established History Problem Focused Exam Problem Focused Medical Decision Making Straight Forward Diagnoses Suicidal ideation R45.851 Bipolar disorder F31.9 Nocturnal enuresis N39.44 Nightmares F51.5 Intellectual disability F79
[2022-04-12 20:15] VITALS: BP 127/71; PULSE 109; RESP 20; TEMP 37.5; O2SAT 95
[2022-04-12] MEDS: amlodipine 5 mg Tablet PO (20:21)
[2022-04-12] MEDS: prazosin 1 mg Capsule 2 MG PO (20:21)
[2022-04-12 22:00] VITALS: RESP 18
[2022-04-13] MEDS: buPROPion XL (24 HR) 150 mg Tablet PO (06:05)
[2022-04-13 06:26] VITALS: BP 104/73; PULSE 78; RESP 16; TEMP 36.5; O2SAT 98
--- NOTE | 2022-04-13 07:03 | PC.NURSE ---
AT 2015 LAST EVENING, 1:1 GERMAN TAYLOR CNA CALLED FOR HELP TO PT'S ROOM. PT HAD JUMPED ONTO BED #2 AND JUMPED OFF TOWARD THE WINDOW AND FELL TO THE FLOOR. VITAL SIGNS OBTAINED, T-99.5,P-109,R-20,BP-127/71,SPO2-95%.
--- NOTE | 2022-04-13 07:03 | PC.NURSE ---
AT 2015 LAST EVENING, JUSTIN/VARUN TAYLOR CALLED STAFF TO PT'S ROOM. PT HAD JUMPED UP ONTO THE 2ND BED AND JUMPED TOWARDS THE WINDOW AND ONTO THE FLOOR. PT'S VITAL SINGS OBTAINED: T-99.5, P-109, R-20, B/P-127/71, SPO2-95%. ATTEMPT MADE TO CONTACT DR OKEEFE VIA PHONE. MESSAGE LEFT FOR DR TO CONTACT UNIT. PT NOTED TO HAVE BRUISING TO HER LEFT ELBOW, RIGHT ELBOW, AND LEFT KNEE. PT DOES COMPLAIN OF SORENESS TO SAID AREAS, HAS PACED UP AND DOWN HALLWAY WHEN AWAKE. HAS HAD NO DISRUPTION OF RANGE OF MOTION TO EITHER BUE OR BLE. ATTEMPT TO CONTACT DR HELTON UNSUCCESSFUL.MESSAGE LEFT FOR HIM ALSO.
[2022-04-13] MEDS: divalproex DR 250 mg Tablet 750 MG PO ×2 (10:46→20:18)
[2022-04-13] MEDS: oxybutynin 5 mg Tablet PO ×2 (10:47→20:18)
[2022-04-13] MEDS: pantoprazole DR 40 mg Tablet PO (10:47)
[2022-04-13] MEDS: metoprolol succinate ER (24 HR) 50 mg Tablet PO (10:47)
[2022-04-13] MEDS: prenatal vitamin Capsule 1 CAP PO (10:47)
[2022-04-13] MEDS: loratadine 10 mg Tablet PO (10:48)
[2022-04-13] MEDS: cyanocobalamin 1,000 mcg Tablet 500 MCG PO (10:48)
[2022-04-13] MEDS: BuSPIRONE 10 mg Tablet PO ×2 (10:48→20:16)
[2022-04-13] MEDS: lithium carbonate ER 450 mg Tablet PO ×2 (10:48→20:17)
[2022-04-13] MEDS: cholecalciferol (vitamin D3) 1,000 unit Tablet 1000 UNIT PO (10:49)
[2022-04-13] MEDS: levothyroxine 25 mcg Tablet PO (10:49)
[2022-04-13] MEDS: cloZAPine 100 mg Tablet 200 MG PO ×2 (10:49→20:18)
[2022-04-13] MEDS: docusate sodium 100 mg Capsule PO ×2 (10:50→17:17)
[2022-04-13] MEDS: LORazepam 0.5 mg Tablet PO ×2 (12:03→17:16)
[2022-04-13] MEDS: haloperidol 5 mg Tablet PO (12:03)
[2022-04-13] MEDS: acetaminophen 325 mg Tablet 650 MG PO ×3 (12:11→20:57)
--- NOTE | 2022-04-13 13:08 | P.NPUPN_ITS ---
Subjective NPU Subjective: Patient is a 32-year-old white female with mild cognitive impairment on multiple psychiatric medications with poor impulse control admitted with suicidal thoughts and unsafe behavior while residing in the residential. The patient continued to require one-to-one due to impulsive behavior and some increased provocative behavior including attempting to leave the locked facility and attempting to wrap a shower curtain around her neck. She had reported that the voices continue to tell her to kill herself. She reports the voices are intermittent but had been louder recently. She described the voices as having been consistent of 1 male and 1 female that appears out of nowhere. She had reported adequate sleep. She reported feeling less tired. She had she had endorsed continued feelings of sadness and lack of motivation to do anything. Mental Status Exam MSE Comments: This is an obese white female in hospital scrubs with poor grooming and improved eye contact. Less psychomotor slowing noted with no clear parkinsonian movements noted. She was less guarded throughout the exam. Speech is limited in productivity but decreased in volume. Mood described as okay, affect is blunted. Thought process, organized and superficial. Thought content: patient endorsed suicidal thoughts but denied homicidal thoughts , reports continued paranoia but no delusions noted and endorses auditory hallucinations but no visual hallucinations. Attention and concentration is poor and memory appeared mostly reliable but none were formally tested. She is alert and oriented three times. Insight and judgment are feeble. Impulse control is impaired. Intellectual ability is commensurate with mild cognitive impairment. Vitals/I&O/Wt Last Vital Signs Temp 97.7 F 04/13/22 06:26 Pulse 78 04/13/22 06:26 Resp 16 04/13/22 06:26 BP 104/73 04/13/22 06:26 Pulse Ox 98 04/13/22 06:26 O2 Del Method 04/13/22 06:26 Data NPU : 04/08/22 22:49 04/08/22 22:49 A&P Assessment and plan (1) Suicidal ideation: Status: Acute (2) Bipolar disorder: Status: Acute (3) Nocturnal enuresis: Status: Acute (4) Nightmares: Status: Acute (5) Intellectual disability: Status: Acute Plan This is a 32 year old white female with a history of trauma, auditory hallucinations and genetic loading for mental health and addiction issues who presents with worsening auditory hallucinations reporting these voices encourage suicidal and homicidal ideation, active suicidal ideation and paranoia but reporting she believes she is fine to be discharged at this time. 1. Continue lithium, clozaril, and depakote, discontinue Thorazine secondary to cardiac concerns, also patient on multiple hypotensive agents that put her at fall risk including, Prazosin, amlodipine, and metoprolol. She appears less sedated in afternoon since discontinuation of thorazine and has been more redirectable. 2. Encourage individual, group and milieu therapy 3. Continue one-to-one for safety given her intermittent reports of inability to keep her self safe on the unit. Involuntary Hold Information 96 Hour Hold: 96 Hour Involuntary Admission: No Attestations NPU Medical Necessity Statement*: Inpatient hospitalization is medically necessary and the clinically appropriate intervention at this time. We will monitor medications and make changes as indicated. Likely length of stay is three to five days. Coding Level of Care Code Established Pt Acute Senior Automation Engineer for Yannickg Fwd Patient Type Established History Problem Focused Exam Problem Focused Medical Decision Making Straight Forward Diagnoses Suicidal ideation R45.851 Bipolar disorder F31.9 Nocturnal enuresis N39.44 Nightmares F51.5 Intellectual disability F79
--- NOTE | 2022-04-13 13:53 | PC.NURSE ---
PT HAS CONT TO TAKE OFF RUNNING TO ROOM AND DOWN HALLS AFTER BEING VERBALLY INSTRUCTED NOT TO FOR HER SAFETY AND OTHER PTS SAFETY, PT CLOSED DOOR TO ROOM WITH SITTER OUTSIDE OF ROOM IN ORTIZ, SECURITY WAS ALREADY ON UNIT FOR ANOTHER ESCALATING PT, PT WAS INSTRUCTED THAT DOOR CAN COME OFF IF SHE CONT TO SLAM IT AND HOLD IT SHUT, PT STATES SHE JUST W3ANTS TO CUT HERSELF PT GIVEN PO ATAVIN AND HALDOL DUE TO SELF HARM STATEMENTS AND RUNNING FROM STAFF. PT TOOK PO MEDS WITH SEVERAL MIN OF TALKING TO ABOUT BEHAVIORS AND WHATS ACCEPTABLE AND WHAT IS NOT.
[2022-04-13 14:00] VITALS: RESP 18
[2022-04-13] MEDS: neomycin-poly-bacitracin oint 28 gm 1 APPLIC TOPICAL (17:17)
--- NOTE | 2022-04-13 17:31 | PC.NURSE ---
PT APPROACHED THIS NURSE ASKING TO SPEAK PRIVATELY, WENT TO PT ROOM, PT SHOWED ME SCRATCHES MADE WITH A PEN THAT PT REPORTS SHE GOT THIS MORNING DURING GROUP TO LEFT UPPER UNDER ARM, SUPERFICIAL SCRATCHES, NOT BLEEDING. AREA CLEANED WITH SOAP AND WATER, FAIZAN APPLIED PER ORDER. PT INSTRUCTED AGAINST BEHAVIORS THAT CAUSE SELF HARM, PT DOES CONTRACT FOR SAFETY WITH THIS NURSE. PT REPORTS SHE WAS IN THE BATHROOM AWAY FROM SITTER WHEN SHE DID SELF HARM. DR OKEEFE AWARE
[2022-04-13] MEDS: OLANZapine 5 mg ODT PO (20:16)
[2022-04-13] MEDS: amlodipine 5 mg Tablet PO (20:17)
[2022-04-13] MEDS: benztropine 1 mg Tablet PO (20:17)
[2022-04-13] MEDS: prazosin 1 mg Capsule 2 MG PO (21:00)
[2022-04-13 21:19] VITALS: BP 115/76; PULSE 96; RESP 17; TEMP 37; O2SAT 96
[2022-04-14 06:00] VITALS: BP 150/78; PULSE 87; RESP 16; TEMP 37; O2SAT 98
[2022-04-14] MEDS: buPROPion XL (24 HR) 150 mg Tablet PO (07:51)
[2022-04-14] MEDS: acetaminophen 325 mg Tablet 650 MG PO ×2 (07:57→14:36)
[2022-04-14] MEDS: haloperidol 5 mg Tablet PO ×2 (07:58→14:13)
[2022-04-14] MEDS: ibuprofen 600 mg Tablet PO ×2 (08:44→18:05)
[2022-04-14] MEDS: diphenhydrAMINE 50 mg/mL SDV 1mL IM ×2 (09:17→16:06)
[2022-04-14] MEDS: haloperidol inj 5 mg/mL INJ 1 mL IM ×2 (09:17→16:06)
[2022-04-14] MEDS: cyanocobalamin 1,000 mcg Tablet 500 MCG PO (10:33)
[2022-04-14] MEDS: prenatal vitamin Capsule 1 CAP PO (10:33)
[2022-04-14] MEDS: cholecalciferol (vitamin D3) 1,000 unit Tablet 1000 UNIT PO (10:33)
[2022-04-14] MEDS: pantoprazole DR 40 mg Tablet PO (10:34)
[2022-04-14] MEDS: loratadine 10 mg Tablet PO (10:34)
[2022-04-14] MEDS: levothyroxine 25 mcg Tablet PO (10:34)
[2022-04-14] MEDS: metoprolol succinate ER (24 HR) 50 mg Tablet PO (10:34)
[2022-04-14] MEDS: docusate sodium 100 mg Capsule PO ×2 (10:34→17:36)
[2022-04-14] MEDS: cloZAPine 100 mg Tablet 200 MG PO ×2 (10:39→20:54)
[2022-04-14] MEDS: divalproex DR 250 mg Tablet 750 MG PO ×2 (10:39→20:55)
[2022-04-14] MEDS: lithium carbonate ER 450 mg Tablet PO ×2 (10:40→20:54)
[2022-04-14] MEDS: oxybutynin 5 mg Tablet PO ×2 (10:40→20:55)
[2022-04-14] MEDS: BuSPIRONE 10 mg Tablet PO ×2 (10:40→20:54)
[2022-04-14] MEDS: neomycin-poly-bacitracin oint 28 gm 1 APPLIC TOPICAL ×2 (10:41→17:36)
--- NOTE | 2022-04-14 11:31 | PC.NURSE ---
PT REPORTS HEARING VOICES TELLING HER TO HURT SELF. PT PRESENTS WITH MULTIPLE SELF INFLICTED BRUISES TO BILATERAL ARMS AND LEFT KNEE. PT ALSO HAS SCRATCHES ON LEFT UPPER ARM AND LEFT CHEST THAT SHE STATES HAPPENED YESTERDAY PT WAS EDUCATED ON NOT SELF HARMING. STATES SHE UNDERSTANDS. PT IS INTELLECTUALLY DELAYED AND SLOW TO RESPOND TO REQUESTS AND EDUCATION TOPICS. PT DENIES SI/HI AND VH. DOES ENDORSE HEARING VOICES. HALDOL WAS GIVEN ORDRED. PT ALSO REQUEST SOMETHING FOR PAIN. TYLENOL WAS GIVEN ORDERED. PT STATES IBUPROFEN WORKS BETTER, DR. OKEEFE NOTIFIED AND NEW ORDERS RECEIVED TO GIVE IBUPROFEN 600 MG Q 6 HIURS PRN. PT CONTINUES TO GET INCREASINGLY AGITATED. ONE ON ONE SITTER CONTINUES FOR SAFETY AND SELF HARM. ALL QUESTIONS ANSWERED AND SUPPORT WAS VOICED.
--- NOTE | 2022-04-14 11:35 | PC.NURSE ---
BEHAVIORS AND PRN MEDS AT APPROXIMATELY 900 PT CAME TO NURSE STATING I WANT TO RUN AND GO HOME. PT WAS TAKEN TO ROOM BY RESIDENTIAL INTERIOR DESIGNER AND SPOKE WITH PT ONE ON ONE TO DEESCALATE. PT CALMED BRIEFLY THAN BEGAN RUNNING DOWN THE HALLWAY. PT THEN RAN INTO ROOM AND BEGAN TO BANG HER HEAD ON THE WALL. PT DID STOP WHEN ASKED TO STOP. REDNESS NOTED TO HEAD, NO BROKEN SKIN NOTED, NO BRUISING AT THIS TIME. PT THEN REPORTED TO THIS RN THAT THE VOICES ARE STILL TELLING HER TO HARM SELF. VERBAL SUPPORT WAS GIVEN. PT DID CALM BRIEFLY AGAIN BUT WHEN THIS RN LEFT ROOM PT BEGAN HITTING THE WALL WITH HER FISTS. THIS RN RETURNED TO ROOM AND PT DID STOP. NO INJURIES WERE NOTED EXCEPT FOR ALL BRUISING TO BILATERAL ARMS. THIS RN INFORMED PT THAT SHE WOULD NEED TO TAKE A SHOT TO HELP HER CALM AND HELP WITH THE VOICES. PT BEGAN TO RUN AGAIN, ONE ON ONE SITTER STAYED WITH PT WHILE THIS NURSE OBTAINED MEDICATION AND CALLED DR. DR. OKEEFE WAS NOTIFIED OF BEHAVIORS AT 0908. DR. OKEEFE GAVE THE OK TO ADMINISTER HALDOL 5 MG IM AND BENADRYL 50 MG IM. RN REQUESTED ATIVAN, DECLINED TO GIVE ORDER AT THAT TIME. SECURITY WAS THEN CALLED FOR STAND BY WITH PRODUCTION FOREMAN. ONCE SECURITY REACHED NPU THIS RN HAD TALKED PT INTO RECEIVING THE MEDIATION TO HELP THE VOICES BENADRYL 50 MG WAS GIVEN IN LEFT DELTOID BY TREVOR HALDOL 5 MG WAS GIVEN IN RIGHT DELTOID BY THIS RN. PT TOLERATED FINE. RESIDENTIAL INTERIOR DESIGNER WAS PRESENT AND HELD PTS HANDS FOR COMFORT. PT THEN GOT UP AND WAS GIVEN A SNACK AND CHOCOLATE MILD REQUESTED AND BEGAN PACING AGAIN WITH SITTER AT SIDE. ALL QUESTIONS ANSWERED AND SUPPORT.
[2022-04-14 14:00] VITALS: BP 143/83; BP 150/78; PULSE 87; PULSE 94; RESP 16; RESP 18; TEMP 36.6; TEMP 37; O2SAT 96; O2SAT 98
--- NOTE | 2022-04-14 16:14 | PC.NURSE ---
BEHAVIOR PRN MEDICATION PT OVERHEARD HEALTH EDUCATION AIDE TELLING VISITOR IF THEY WERE READY TO LEAVE. PT THEN RAN TO THE ACUTE DOOR FULL SPEED AND THEN TRIPPED AND FELL, LANDED ON THE FLOOR, PT THEN POPPED BACK UP IMMEDIATELY RAN AT FULL SPEED AGAIN INTO HER BATHROOM, PT SLAMMED DOOR, SITTER RAN TO NURSES STATION AND SAID PT WAS IN THE BATHROOM WITH SOCKS AROUND HER NECK. ALL STAFF RESPONDED IMMEDIATELY. HEALTH EDUCATION AIDE WAS WITH PT AND HAD ALREADY REMOVED THE SOCKS FROM PTS NECK. NO REDNESS OR INJURY WAS NOTED TO NECK OR OTHER PARTS OF BODY FROM FALL. WHEN ASKED WHERE PT GOT SOCKS PT STATED SHE FOUND THEM AND HID THEM UNDER HER BED. ROOM AND BATHROOM WAS CLEARED FOR EXTRA LINENS, SOCKS ETC. NONE WERE FOUND OR OBSERVED. ACUTE SIDE OF UNIT WAS SCANNED BY STAFF FOR EXTRA LINENS/SOCKS AND CONTRABAND AND ALL EXTRA ITEMS WERE REMOVED. DR. OKEEFE WAS NOTIFIED OF ALL THE ABOVE AND OKAYED FOR THIS RN TO GIVE BENADRYL 50 MG IM AND HALDOL 5 MG IM. THIS RN WENT TO ROOM WITH GN TO ADMINISTER MEDICATIONS, PT BEGAN TO RUN AGAIN AND FIGHT STAFF. PT WAS ABLE TO BE VERBALLY REDIRECTED AND THEN STOPPED. PT HELD ONTO HEALTH EDUCATION AIDE'S HAND AND SAT DOWN. HALDOL 5 MG WAS GIVEN TO LEFT DELTOID AND 50 MG OF BENADRYL WAS GIVEN IN RIGHT DELTOID. PT TOLERATED WELL. ONCE INJECTIONS WERE GIVEN PT REQUESTED CHOCOLATE MILK. AFTER PT DRANK IT PT GOT UP AND BEGAN TO AMBULATE WITH SITTER AT SIDE. PT CONTINUES TO WALK BRISKLY AND IS VISIBLY AGITATED. ALL QUESTIONS WERE ANSWERED AND SUPPORT VOICED.
--- NOTE | 2022-04-14 19:05 | W.PM.NPUPNS ---
Subjective NPU Subjective: Patient is a 32-year-old white female with mild cognitive impairment on multiple psychiatric medications with poor impulse control admitted with suicidal thoughts and unsafe behavior while residing in the [facility]. The patient continued to require one-to-one due to impulsive behavior and the patient continues to have multiple episodes of provocative behavior that continue despite the patient being on one-on-one in the hospital. She continued to express desire to return back to her home. The patient has been spending most of her afternoon walking and pacing the halls and is unable to engage in any form of milieu therapy. She has been more alert and has been more communicative. She reported continued thoughts of wanting to hurt herself and had engaged in some self-injurious behavior by head banging into a window. Mental Status Exam MSE Comments: This is an obese white female in hospital scrubs with poor grooming and improved eye contact. Less psychomotor slowing noted with no clear parkinsonian movements noted. She was less guarded throughout the exam. Speech is limited in productivity but decreased in volume. Mood described as not good affect is blunted. Thought process, organized and superficial. Thought content: patient endorsed suicidal thoughts but denied homicidal thoughts , reports continued paranoia but no delusions noted and endorses auditory hallucinations but no visual hallucinations. Attention and concentration is poor and memory appeared mostly reliable but none were formally tested. She is alert and oriented three times. Insight and judgment remain feeble. Impulse control is impaired. Intellectual ability is commensurate with mild cognitive impairment. Vitals/I&O/Wt Last Vital Signs Temp 97.9 F 04/14/22 14:00 Pulse 94 04/14/22 14:00 Resp 18 04/14/22 14:00 BP 143/83 04/14/22 14:00 Pulse Ox 96 04/14/22 14:00 O2 Del Method 04/14/22 14:00 Data NPU : 04/08/22 22:49 04/08/22 22:49 A&P Assessment and plan (1) Suicidal ideation: Status: Acute (2) Bipolar disorder: Status: Acute (3) Nocturnal enuresis: Status: Acute (4) Nightmares: Status: Acute (5) Intellectual disability: Status: Acute Plan This is a 32 year old white female with a history of trauma, auditory hallucinations and genetic loading for mental health and addiction issues who presents with worsening auditory hallucinations reporting these voices encourage suicidal and homicidal ideation, active suicidal ideation and paranoia but reporting she believes she is fine to be discharged at this time. 1. Continue lithium, clozaril, and depakote, discontinue Thorazine secondary to cardiac concerns, also patient on multiple hypotensive agents that put her at fall risk including, Prazosin, amlodipine, and metoprolol. She appears less sedated in afternoon since discontinuation of thorazine and has been more redirectable but still requires 1-1. Monitor self and quantify self injurious behavior, attempts at elopement and aggression on milieu. Will begin taper of lorazepam as benzodiazepine may be more prone to causing agitation. 2. Encourage individual, group and milieu therapy 3. Continue one-to-one for safety given her intermittent reports of inability to keep her self safe on the unit. Involuntary Hold Information 96 Hour Hold: 96 Hour Involuntary Admission: No Attestations NPU Medical Necessity Statement*: Inpatient hospitalization is medically necessary and the clinically appropriate intervention at this time. We will monitor medications and make changes as indicated. Likely length of stay is three to five days. Coding Level of Care Code Established Pt Acute Bilingual Sales Representative for Yannickg Fwd Patient Type Established History Problem Focused Exam Problem Focused Medical Decision Making Straight Forward Diagnoses Suicidal ideation R45.851 Bipolar disorder F31.9 Nocturnal enuresis N39.44 Nightmares F51.5 Intellectual disability F79
[2022-04-14] MEDS: amlodipine 5 mg Tablet PO (20:54)
[2022-04-14] MEDS: prazosin 1 mg Capsule 2 MG PO (20:54)
[2022-04-14 22:00] VITALS: BP 114/78; PULSE 102; RESP 18; TEMP 36.6; O2SAT 93
--- NOTE | 2022-04-15 09:19 | PC.NURSE ---
Addendum entered by Marimar Leung RN 04/15/22 10:26: Dr. Lee was notified and ordered Geodon 20mg IM to be given to patient. After injection patient was given a chocolate milk and arose shortly after to begin pacing the hallway with sitter. Original Note: Patient is exhibiting aggressive and irritable behavior this morning. Patient attempted to leave the facility through the nurses' station, but nurses and sitter were able to redirect her. Patient then ran to her room and began slamming her head repeatedly against the wall in her bathroom. Patient had a baseball sized reddened area on her forehead immediately after this. At this time it has decreased in to the size of a golfball. Verbal deescalation was utilized and was effective. Patient sat down calmly next to the H[employer]CHO[employer] MEDIA SPECIALIST on her mattress. Patient then began refusing her medications and had to be on a 3 on 1. This GN administered Geodon 20mg IM into the right deltoid with RN, H[employer] MEDIA SPECIALIST, and sitter present. Patient was cooperative and tolerated IM injection well. After injection she agreed to take the rest of her medications. Patient is currently pacing the hallway with the 1:1 sitter.
[2022-04-15] MEDS: ziprasidone 20 mg/mL SDV IM ×2 (09:29→15:26)
[2022-04-15] MEDS: ibuprofen 600 mg Tablet PO ×2 (09:39→15:32)
[2022-04-15] MEDS: loratadine 10 mg Tablet PO (09:49)
[2022-04-15] MEDS: prenatal vitamin Capsule 1 CAP PO (09:50)
[2022-04-15] MEDS: lithium carbonate ER 450 mg Tablet PO ×2 (09:51→20:37)
[2022-04-15] MEDS: metoprolol succinate ER (24 HR) 50 mg Tablet PO (09:52)
[2022-04-15] MEDS: oxybutynin 5 mg Tablet PO ×2 (09:53→20:36)
[2022-04-15] MEDS: pantoprazole DR 40 mg Tablet PO (09:53)
[2022-04-15] MEDS: buPROPion XL (24 HR) 150 mg Tablet PO (09:55)
[2022-04-15] MEDS: BuSPIRONE 10 mg Tablet PO ×2 (09:55→20:36)
[2022-04-15] MEDS: cholecalciferol (vitamin D3) 1,000 unit Tablet 1000 UNIT PO (09:55)
[2022-04-15] MEDS: cyanocobalamin 1,000 mcg Tablet 500 MCG PO (09:56)
[2022-04-15] MEDS: divalproex DR 250 mg Tablet 750 MG PO ×2 (09:56→20:37)
[2022-04-15] MEDS: docusate sodium 100 mg Capsule PO ×2 (09:57→17:29)
[2022-04-15] MEDS: levothyroxine 25 mcg Tablet PO (09:58)
--- NOTE | 2022-04-15 10:34 | PC.NURSE ---
NEW ORDERS IN AM MEETING DR. OKEEFE GAVE ORDERS TO OBTAIN A CLOZARIL LEVEL. ORDERS WERE PLACED. PT EDUCATED AND STATES SHE WILL ALLOW LAB TO DRAW LEVEL. CLOZARIL AM DOSE WILL BE HELD UNTIL LAB IS DRAWN AND THEN CLOZARIL WILL BE GIVEN ORDERED.
[2022-04-15] MEDS: acetaminophen 325 mg Tablet 650 MG PO (11:03)
[2022-04-15 14:00] VITALS: BP 146/94; PULSE 88; RESP 18; TEMP 36.4; O2SAT 93
[2022-04-15] MEDS: cloZAPine 100 mg Tablet 200 MG PO ×2 (14:24→20:36)
--- NOTE | 2022-04-15 15:19 | PC.NURSE ---
PT CONTINUES TO HIT HEAD ON BATHROOM WALL. PT WAS REDIRECTED AND SAT DOWN ON MATRESS. PT THEN ROLLED OVER AND STARTED HITTING HER INTO THE FLOOR. PT WAS VERBALLY REDIRECTED BACK TO THE BED. DR. OKEEFE WAS NOTIFIED AND ORDERS WERE RECEIVED FOR GEODON 20 MG IM NOW. GEODON 20 MG GIVEN IN RIGHT DELTOID. TOLERATED WELL.
[2022-04-15] MEDS: haloperidol 5 mg Tablet PO (15:32)
[2022-04-15] MEDS: benztropine 1 mg Tablet PO (15:32)
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
[2022-04-15] MEDS: neomycin-poly-bacitracin oint 28 gm 1 APPLIC TOPICAL (17:29)
--- NOTE | 2022-04-15 18:29 | W.PM.NPUPNS ---
Subjective NPU Subjective: Patient is a 32-year-old white female with mild cognitive impairment on multiple psychiatric medications with poor impulse control admitted with suicidal thoughts and unsafe behavior [facility]. Patient continued to require one-on-one as she had unsafe on the milieu and unable to engage in any group activities. She continued to report feeling suicidal but stated that she wished to return home. The patient appeared more alert less sluggish on the unit. She had been able to sleep without any difficulties per staff. Mental Status Exam MSE Comments: This is an obese white female in hospital scrubs with poor grooming and improved eye contact. She was rapidly walking with her 1-1 throughout the halls with no clear parkinsonian movements noted. . Speech is limited in productivity but decreased in volume. Mood described as bad affect is blunted. Thought process, organized and superficial. Thought content: patient endorsed suicidal thoughts but denied homicidal thoughts , reports continued paranoia but no delusions noted and endorses auditory hallucinations but no visual hallucinations. Attention and concentration is poor and memory appeared mostly reliable but none were formally tested. She is alert and oriented to person and place. Insight and judgment remain feeble. Impulse control is impaired. Intellectual ability is commensurate with mild cognitive impairment. Vitals/I&O/Wt Last Vital Signs Temp 97.5 F L 04/15/22 14:00 Pulse 88 04/15/22 14:00 Resp 18 04/15/22 14:00 BP 146/94 04/15/22 14:00 Pulse Ox 93 04/15/22 14:00 O2 Del Method 04/15/22 14:00 Data NPU : 04/08/22 22:49 04/08/22 22:49 A&P Assessment and plan (1) Suicidal ideation: Status: Acute (2) Bipolar disorder: Status: Acute (3) Nocturnal enuresis: Status: Acute (4) Nightmares: Status: Acute (5) Intellectual disability: Status: Acute Plan This is a 32 year old white female with a history of trauma, auditory hallucinations and genetic loading for mental health and addiction issues who presents with worsening auditory hallucinations reporting these voices encourage suicidal and homicidal ideation, active suicidal ideation and paranoia but reporting she believes she is fine to be discharged at this time. 1. Continue lithium, clozaril, and depakote, also patient on multiple hypotensive agents that put her at fall risk including, Prazosin, amlodipine, and metoprolol. 2. She appears less sedated in afternoon since discontinuation of thorazine and has been more redirectable but still requires 1-1. Monitor self and quantify self injurious behavior, attempts at elopement and aggression on milieu. 3. Encourage individual, group and milieu therapy 4. Continue one-to-one for safety given her intermittent reports of inability to keep her self safe on the unit.She may require residential placement when available. Involuntary Hold Information 96 Hour Hold: 96 Hour Involuntary Admission: No Attestations NPU Medical Necessity Statement*: Inpatient hospitalization is medically necessary and the clinically appropriate intervention at this time. We will monitor medications and make changes as indicated. Likely length of stay is five to ten days. Coding Level of Care Code Established Pt Acute Independent Contractor for Yannickg Fwd Patient Type Established History Problem Focused Exam Problem Focused Medical Decision Making Straight Forward Diagnoses Suicidal ideation R45.851 Bipolar disorder F31.9 Nocturnal enuresis N39.44 Nightmares F51.5 Intellectual disability F79
[2022-04-15 20:24] VITALS: RESP 18
[2022-04-15] MEDS: trazodone 50 mg Tablet PO (20:36)
[2022-04-15] MEDS: prazosin 1 mg Capsule 2 MG PO (20:36)
[2022-04-15] MEDS: amlodipine 5 mg Tablet PO (20:36)
[2022-04-16 06:00] VITALS: RESP 15
--- NOTE | 2022-04-16 09:10 | PC.NURSE ---
Patient Behavior Patient asked to take a bath, 1:1 sitter in shower room with her. Patient took hair brush and repeatedly drug it across her left forearm. Actions happened very quickly and there were several superficial scratches inflicted before getting the brush from her. Wound cleaned with saline. MD notified and orders obtained. Will continue with 1:1 sitter.
[2022-04-16] MEDS: oxybutynin 5 mg Tablet PO ×2 (09:15→20:17)
[2022-04-16] MEDS: lithium carbonate ER 450 mg Tablet PO ×2 (09:15→20:19)
[2022-04-16] MEDS: BuSPIRONE 10 mg Tablet PO ×3 (09:15→20:18)
[2022-04-16] MEDS: divalproex DR 250 mg Tablet 750 MG PO ×2 (09:15→20:18)
[2022-04-16] MEDS: cloZAPine 100 mg Tablet 200 MG PO ×2 (09:15→20:17)
[2022-04-16] MEDS: prenatal vitamin Capsule 1 CAP PO (09:34)
[2022-04-16] MEDS: cyanocobalamin 1,000 mcg Tablet 500 MCG PO (09:34)
[2022-04-16] MEDS: buPROPion XL (24 HR) 150 mg Tablet PO (09:34)
[2022-04-16] MEDS: pantoprazole DR 40 mg Tablet PO (09:35)
[2022-04-16] MEDS: levothyroxine 25 mcg Tablet PO (09:35)
[2022-04-16] MEDS: docusate sodium 100 mg Capsule PO ×2 (09:35→18:52)
[2022-04-16] MEDS: loratadine 10 mg Tablet PO (09:35)
[2022-04-16] MEDS: metoprolol succinate ER (24 HR) 50 mg Tablet PO (09:35)
[2022-04-16] MEDS: cholecalciferol (vitamin D3) 1,000 unit Tablet 1000 UNIT PO (09:36)
[2022-04-16] MEDS: ziprasidone 20 mg/mL SDV IM ×2 (11:12→18:31)
--- NOTE | 2022-04-16 11:13 | PC.NURSE ---
Patient was given 20mg Geodon IM at 11:10; post aggressive self harming behavior. Dr. Lee was consulted and a V/O for 20mg Geodon NOW was given and ordered. Security was called to stand-by for safety. Injection given with minimal resistance and no adverse event.
[2022-04-16] MEDS: OLANZapine 5 mg ODT PO (12:01)
[2022-04-16] MEDS: hyDROXYzine 25 mg Capsule 50 MG PO ×3 (12:01→20:16)
[2022-04-16] MEDS: neomycin-poly-bacitracin oint 28 gm 1 APPLIC TOPICAL ×2 (12:33→18:55)
--- NOTE | 2022-04-16 12:38 | PC.NURSE ---
Patient was visualizing past memories and hysterically laughing/ crying about them.
[2022-04-16 14:00] VITALS: BP 138/80; PULSE 107; RESP 17; TEMP 37.2; O2SAT 100
--- NOTE | 2022-04-16 15:13 | W.PM.NPUPNS ---
Subjective NPU Subjective: Patient is a 32-year-old white female with mild cognitive impairment on multiple psychiatric medications with poor impulse control admitted with suicidal thoughts and unsafe behavior while residing in the group home. Patient continues to require one-to-one observation on the unit as she had taken a broken hairbrush and cut herself forearm superficially. Patient continues to report having loud auditory hallucinations and continues to pace the hallway in the unit. She did engage in some improved self-care as she was able to take a shower today. She has been eating and has complained of constipation. Patient had continued to report having thoughts of hurting herself yet at the same time reporting that she wished to go home. Mental Status Exam MSE Comments: This is an obese white female in hospital scrubs with improved grooming and adequete eye contact. She was seen accompanied by her one-to-one on the unit. Speech is limited in productivity but decreased in volume. Mood described as okay Her affect is blunted. Thought process, minimally organized and superficial. Thought content: patient endorsed suicidal thoughts but denied homicidal thoughts , reports continued paranoia but no delusions noted and endorses auditory hallucinations but no visual hallucinations. Attention and concentration is poor and memory appeared mostly reliable but none were formally tested. She is alert and oriented to person and place. Insight and judgment remain feeble. Impulse control is impaired. Intellectual ability is commensurate with mild cognitive impairment. Vitals/I&O/Wt Last Vital Signs Temp 97.5 F L 04/15/22 14:00 Pulse 88 04/15/22 14:00 Resp 15 04/16/22 06:00 BP 146/94 04/15/22 14:00 Pulse Ox 93 04/15/22 14:00 O2 Del Method 04/15/22 14:00 Data NPU : 04/08/22 22:49 04/08/22 22:49 A&P Assessment and plan (1) Suicidal ideation: Status: Acute (2) Bipolar disorder: Status: Acute (3) Nocturnal enuresis: Status: Acute (4) Nightmares: Status: Acute (5) Intellectual disability: Status: Acute Plan This is a 32 year old white female with a history of trauma, auditory hallucinations and genetic loading for mental health and addiction issues who presents with worsening auditory hallucinations reporting these voices encourage suicidal and homicidal ideation, active suicidal ideation and paranoia but reporting she believes she is fine to be discharged at this time. 1. Continue lithium, clozaril, and depakote. Patient will have increase in buspar to 10mg tid to target self injurious behavior. Clozaril level pending. Depakote/[place] therapeutic range on labs. 2. She appears less sedated in afternoon since discontinuation of thorazine and has been more redirectable but still requires 1-1. Monitor self and quantify self injurious behavior, attempts at elopement and aggression on milieu. 3. Encourage individual, group and milieu therapy. We continue to use prn medications such as geodon. 4. Continue one-to-one for safety given her intermittent reports of inability to keep her self safe on the unit.She may require residential placement when available. Involuntary Hold Information 96 Hour Hold: 96 Hour Involuntary Admission: No Attestations NPU Medical Necessity Statement*: Inpatient hospitalization is medically necessary and the clinically appropriate intervention at this time. We will monitor medications and make changes as indicated. Likely length of stay is five to ten days. Coding Level of Care Code Established Pt Acute Order Processing Clerk for Yannickg Fwd Patient Type Established History Problem Focused Exam Problem Focused Medical Decision Making Straight Forward Diagnoses Suicidal ideation R45.851 Bipolar disorder F31.9 Nocturnal enuresis N39.44 Nightmares F51.5 Intellectual disability F79
[2022-04-16] MEDS: haloperidol 5 mg Tablet PO (15:38)
--- NOTE | 2022-04-16 18:32 | PC.NURSE ---
Patient Behavior and PRN Patient rapidly pacing the belle, attempting to scratch herself, banging head on a door and trying to get out of the window in the day area. Behavior has been escalating for the past hour. Dr notified and orders given. Geodon 20mg given IM.
--- NOTE | 2022-04-16 19:05 | PC.NURSE ---
Altaf's Observations Behavior: Patient paced, banged head against floor & wall, attempted to punch through wall light & use pieces to scrape arm, broke comb and spoon & scraped left arm - nery blood, scraped wounds with finger nails, jumped on tables & jumped off and into window - uninjured. Patient did not want to take oral medications because the voices told her it is poison . Injections were given. Patient mood and demeanor improved, smiled, became more talkative. Demeanor declined within a couple hours - far off gaze, quiet, drooling, shaking, began trying to hurt herself again. Negative self perception - ugly & fat. Attempted to call her mother twice - no answer - felt rejected and unloved, became angry & attempted to self harm. Soothed by hand holding, which was necessary to keep her from scratching & self harm. Kind behavior observed - Clara was crying and she was concerned - she walked over to ask if she was okay.
[2022-04-16] MEDS: amlodipine 5 mg Tablet PO (20:17)
[2022-04-16] MEDS: trazodone 50 mg Tablet PO ×2 (20:18→22:10)
[2022-04-17] MEDS: haloperidol inj 5 mg/mL INJ 1 mL IM ×3 (03:03→18:28)
[2022-04-17] MEDS: diphenhydrAMINE 50 mg/mL SDV 1mL IM ×3 (03:03→18:28)
[2022-04-17] MEDS: LORazepam 2 mg/mL INJ 1 mL IM ×3 (03:15→18:28)
--- NOTE | 2022-04-17 03:23 | PC.NURSE ---
PT WOKE UP AND BEGAN BANGING HEAD ON SWEENEY AND RUNNING UP AND DOWN THE ORTIZ TRYING TO HURT SELF. THEN RAN TO TABLE IN DAYROOM AND WAS GOING TO TRY AND JUMP THROUGH THE WINDOW. B52 GIVEN WITH GOOD EFFECT. 1:[address] PT IS FAST.
[2022-04-17] MEDS: LORazepam 2 mg/mL INJ 1 mL (03:26)
[2022-04-17 06:00] VITALS: BP 110/75; PULSE 71; RESP 16; TEMP 36.7; O2SAT 98
[2022-04-17] MEDS: loratadine 10 mg Tablet PO (08:30)
[2022-04-17] MEDS: docusate sodium 100 mg Capsule PO ×2 (08:30→17:55)
[2022-04-17] MEDS: cyanocobalamin 1,000 mcg Tablet 500 MCG PO (08:30)
[2022-04-17] MEDS: buPROPion XL (24 HR) 150 mg Tablet PO (08:30)
[2022-04-17] MEDS: pantoprazole DR 40 mg Tablet PO (08:31)
[2022-04-17] MEDS: BuSPIRONE 10 mg Tablet PO ×2 (08:31→15:30)
[2022-04-17] MEDS: oxybutynin 5 mg Tablet PO ×2 (08:31→20:11)
[2022-04-17] MEDS: lithium carbonate ER 450 mg Tablet PO ×2 (08:31→20:11)
[2022-04-17] MEDS: cholecalciferol (vitamin D3) 1,000 unit Tablet 1000 UNIT PO (08:31)
[2022-04-17] MEDS: divalproex DR 250 mg Tablet 750 MG PO ×2 (08:31→20:11)
[2022-04-17] MEDS: levothyroxine 25 mcg Tablet PO (08:31)
[2022-04-17] MEDS: metoprolol succinate ER (24 HR) 50 mg Tablet PO (08:31)
[2022-04-17] MEDS: prenatal vitamin Capsule 1 CAP PO (08:31)
[2022-04-17] MEDS: neomycin-poly-bacitracin oint 28 gm 1 APPLIC TOPICAL ×2 (08:32→17:55)
[2022-04-17] MEDS: cloZAPine 100 mg Tablet 200 MG PO ×2 (08:42→20:12)
--- NOTE | 2022-04-17 10:52 | PC.NURSE ---
PT WAS IN THE ORTIZ WITH SITTER PRESENT WHEN LITZYTER CALLED OUT TO STAFF BECAUSE PT HAD SPOON AND WAS ATTEMPTING TO SELF HARM. PT WAS THEN BANGING HEAD OFF OF THE WALL. STAFF AND ABLE TO ASSIST PT UP AND AMBULATE BACK TO PT ROOM. SECURITY WAS PRESENT. PT WAS GIVEN HALDOL IM, ATIVAN IM, AND BENADRYL IM IN PT LEFT HIP AT 0805. PT TOLERATED INJECTION WELL. PT IS NOW RESTING IN BED.
--- NOTE | 2022-04-17 13:03 | PC.NURSE ---
PT CAME TO NURSES STATION AND SPOKE WITH THE CHARGE NURSE. PT TELLS CHARGE NURSE PT IS HEARING VOICES AND WANTS TO HARM HERSELF, GERMAN IS PRESENT WITH PT. THIS NURSE WENT TO PT ROOM TO GIVE PT OLANZAPINE AND HALDOL BUT PT REFUSED TO TAKE THE MEDICATION. CHARGE NURSE WAS NOTIFIED. PT IS RESTING IN BED
[2022-04-17] MEDS: haloperidol 5 mg Tablet PO (13:22)
[2022-04-17] MEDS: OLANZapine 5 mg ODT PO (13:22)
--- NOTE | 2022-04-17 13:22 | PC.NURSE ---
PT UP TO NURSES STATION REQUESTING TO SPEAK TO THIS NURSE IN PRIVATE. IN PT ROOM, PT STATES SHES HEARING VOICES AND WANTS TO HURT HERSELF, PT INSTRUCTED SHE DID THE CORRECT THING BY SPEAKING TO NURSE ABOUT VOICES AND THOUGHTS OF SELF HARM, PRN HALDOL AND ZYPREXA GIVEN BY MED NURSE RADHA SALAS WITHOUT DIFF. PT IN ROOM WITH SITTER PRESENT
[2022-04-17 13:44] VITALS: BP 106/69; PULSE 81; RESP 16; TEMP 36.6
--- NOTE | 2022-04-17 18:34 | PC.NURSE ---
PT WITH ONE TO ONE SITTER, SITTER CALLS FOR HELP PT IS HITTING HEAD ON WALL IN ROOM. ATTEMPTS MADE TO REDIRECT PT WITH NO SUCCESS. THIS NURSE ATTEMPTED TO VERBAL CALM PT, PT CAME UP TO NURSES STATION FOR A DRINK THEN DARTED OFF TO ROOM TO SLAM DOOR, PT DOES NOT WANT TO SPEAK TO STAFF, DOES REPORT SHE IS HEARING VOICES AND WANTS TO HURT SELF, MED NURSE RADHA SALAS BRINGS PRN IM HALDOL ATIVAN AND BENADRYL. SHOTS ADMIT BY SEA GARCIA LPN, RN WITHOUT DIFF AT 1825. PT DOES CONTRACT TO SPEAK WITH THIS NURSE OR ONCOMING STAFF TONIGHT WHEN SHE HEARS VOICES TO SELF HARM. SUPPORT GIVEN TO PT, THIS NURSE STAYED WITH PT UNTILL SHE WAS CALM AND WANTED TO LAY DOWN ON HER BED. ONE TO ONE IN ROOM WITH PT.
--- NOTE | 2022-04-17 19:19 | W.PM.NPUPNS ---
Subjective NPU Subjective: Patient is a 32-year-old white female with mild cognitive impairment on multiple psychiatric medications with poor impulse control admitted with suicidal thoughts and unsafe behavior while residing in the [facility]way. Patient continues to have episodes of aggression and self injury as she had broken a spoon and again cut her forearm. She used to sleep during much of the day at times. She reports that she wishes to return home. She reports that she continued to hear voices. She continues to require a one-to-one due to inability to remain safe during her waking time on the unit. The patient continues to require much prompting for activities of daily living. Mental Status Exam MSE Comments: This is an obese white female in hospital scrubs with poor grooming and poor eye contact. She was seen accompanied by her one-to-one on the unit. Speech is limited in productivity but decreased in volume. Mood described as not good Her affect is blunted. Thought process, minimally organized and superficial. Thought content: patient endorsed suicidal thoughts but denied homicidal thoughts , reports continued paranoia but no delusions noted and endorses auditory hallucinations but no visual hallucinations. Attention and concentration is poor and memory appeared mostly reliable but none were formally tested. She is alert and oriented to person and place. Insight and judgment remain feeble. Impulse control is impaired. Intellectual ability is commensurate with mild cognitive impairment. Vitals/I&O/Wt Last Vital Signs Temp 97.8 F 04/17/22 13:44 Pulse 81 04/17/22 13:44 Resp 16 04/17/22 13:44 BP 106/69 04/17/22 13:44 Pulse Ox 98 04/17/22 06:00 O2 Del Method 04/17/22 13:44 Weight last 48 hrs Weight 94.529 kg Data NPU : 04/08/22 22:49 04/08/22 22:49 A&P Assessment and plan (1) Suicidal ideation: Status: Acute (2) Bipolar disorder: Status: Acute (3) Nocturnal enuresis: Status: Acute (4) Nightmares: Status: Acute (5) Intellectual disability: Status: Acute Plan This is a 32 year old white female with a history of trauma, auditory hallucinations and genetic loading for mental health and addiction issues who presents with worsening auditory hallucinations reporting these voices encourage suicidal and homicidal ideation, active suicidal ideation and paranoia but reporting she believes she is fine to be discharged at this time. 1. Continue lithium, clozaril, and depakote. Patient will have increase in buspar to 15mg tid to target self injurious behavior. Clozaril level pending. Depakote/[place] therapeutic range on labs. 2. She appears less sedated in afternoon since discontinuation of thorazine and has been more redirectable but still requires 1-1. Monitor self and quantify self injurious behavior, attempts at elopement and aggression on milieu. 3. Encourage individual, group and milieu therapy. We continue to use prn medications such as geodon. 4. Continue one-to-one for safety given her intermittent reports of inability to keep her self safe on the unit. She will require residential placement when available. Involuntary Hold Information 96 Hour Hold: 96 Hour Involuntary Admission: No Attestations NPU Medical Necessity Statement*: Inpatient hospitalization is medically necessary and the clinically appropriate intervention at this time. We will monitor medications and make changes as indicated. Likely length of stay is five to ten days. Coding Level of Care Code Established Pt Acute Adolescent Medicine Specialist for Rob Matson Patient Type Established History Problem Focused Exam Problem Focused Medical Decision Making Straight Forward Diagnoses Suicidal ideation R45.851 Bipolar disorder F31.9 Nocturnal enuresis N39.44 Nightmares F51.5 Intellectual disability F79
[2022-04-17] MEDS: hyDROXYzine 25 mg Capsule 50 MG PO (20:11)
[2022-04-17] MEDS: amlodipine 5 mg Tablet PO (20:12)
[2022-04-17] MEDS: BuSPIRONE 10 mg Tablet 15 MG PO (20:12)
[2022-04-17] MEDS: trazodone 50 mg Tablet PO (20:12)
[2022-04-17 20:17] VITALS: BP 105/71; PULSE 89; RESP 16; TEMP 36.9; O2SAT 97
[2022-04-18 06:00] VITALS: BP 112/87; PULSE 90; RESP 16; TEMP 36.8; O2SAT 96
[2022-04-18] MEDS: OLANZapine 5 mg ODT PO (06:26)
[2022-04-18] MEDS: haloperidol inj 5 mg/mL INJ 1 mL IM ×2 (06:59→11:56)
[2022-04-18] MEDS: LORazepam 2 mg/mL INJ 1 mL IM ×2 (07:00→11:57)
[2022-04-18] MEDS: diphenhydrAMINE 50 mg/mL SDV 1mL IM ×2 (07:01→11:56)
--- NOTE | 2022-04-18 07:02 | PC.NURSE ---
PT CAME TO NURSE'S STATION AND TOLD THIS NURSE SHE WAS HEARING VOICES TELLING HER TO HURT HERSELF. ZYPREXA ZYDIS GIVEN WITH POOR EFFECT BECAUSE PT THEN BEGAN RUNNING UP AND DOWN THE ORTIZ TRYING TO GET AWAY FROM THE SITTER AND HITTING HER HEAD ON SWEENEY, DOORS AND ANYTHING SHE COULD. B52 GIVEN. PT NOW IN HER ROOM LYING ON BED WITH SITTER AT BEDSIDE.
[2022-04-18] MEDS: ziprasidone 20 mg/mL SDV IM ×2 (08:02→17:30)
[2022-04-18] MEDS: docusate sodium 100 mg Capsule PO ×2 (08:06→18:27)
[2022-04-18] MEDS: cyanocobalamin 1,000 mcg Tablet 500 MCG PO (08:06)
[2022-04-18] MEDS: cloZAPine 100 mg Tablet 200 MG PO ×2 (08:06→20:10)
[2022-04-18] MEDS: buPROPion XL (24 HR) 150 mg Tablet PO (08:06)
[2022-04-18] MEDS: levothyroxine 25 mcg Tablet PO (08:06)
[2022-04-18] MEDS: pantoprazole DR 40 mg Tablet PO (08:06)
[2022-04-18] MEDS: loratadine 10 mg Tablet PO (08:06)
[2022-04-18] MEDS: metoprolol succinate ER (24 HR) 50 mg Tablet PO (08:06)
[2022-04-18] MEDS: oxybutynin 5 mg Tablet PO ×2 (08:06→20:10)
[2022-04-18] MEDS: lithium carbonate ER 450 mg Tablet PO ×2 (08:06→20:10)
[2022-04-18] MEDS: cholecalciferol (vitamin D3) 1,000 unit Tablet 1000 UNIT PO (08:06)
[2022-04-18] MEDS: BuSPIRONE 10 mg Tablet 15 MG PO ×3 (08:06→20:11)
[2022-04-18] MEDS: divalproex DR 250 mg Tablet 750 MG PO ×2 (08:07→20:10)
[2022-04-18] MEDS: prenatal vitamin Capsule 1 CAP PO (08:07)
[2022-04-18] MEDS: neomycin-poly-bacitracin oint 28 gm 1 APPLIC TOPICAL ×2 (08:07→18:28)
--- NOTE | 2022-04-18 08:11 | PC.NURSE ---
PT REQUIRING X2 NPU STAFF TO KEEP FROM SCRATCHING SELF, THIS NURSE ATTEMPTED TO VERBALLY CALM PT AND EXPLAIN THAT SELF HARMING IS NOT HOW SHE WILL GET TO GO HOME QUICKER, PT CONT TO TRY TO SCRATCH LT WRIST WITH FINGERNAILS AND RUN OUT HER ROOM DOOR, SHE CONT TO HIT BACK OF HEAD ON WALL IN ROOM, AND ALSO HITS FOREHEAD ON WALL. PT GIVEN IM GEODON PER RADHA SALAS WITHOUT ISSUE IN LT DELTOID. THIS NURSE AND AB BOND SITS WITH PT UNTILL PT CALMS, SHAKES HEAD YES WHEN INSTRUCTED TO SPEAK TO STAFF WHEN SHE HEARS VOICES TO SELF HARM, PT BREAKFAST BROUGHT TO PT IN ROOM, ONE TO ONE WITH PT. PT DOES TAKE SCHEDULED AM MEDS WITHOUT ISSUE
--- NOTE | 2022-04-18 11:57 | PC.NURSE ---
PT WAS BANGING HEAD ON THE WALL IN PT ROOM. THIS NURSE AND OTHER STAFF WENT TO PT ROOM AND PT WAS NO LONGER HITTING PT HEAD ON THE WALL. SITTER WAS PRESENT WITH THE PATIENT. PT WAS REDIRECTED TO SIT ON MATTRESS IN THE FLOOR. PT BEGAN TO SELF HARM BY SCRATCHING HER LEFT FOREARM REPEATEDLY. STAFF HELD PT HAND TO PREVENT FURTHER INJURY. NURSING STAFF BROUGHT IN HALDOL IM, BENADRYL IM, AND ATIVAN IM TO BE GIVEN TO THE PATIENT. PT RESTED ON MATTRESS AND WAS GIVEN INJECTIONS IN RIGHT AND LEFT DELTOIDS. PT WAS ADMINISTERED MEDICATION WITHOUT INCIDENT. PT IS NOW RESTING ON MATTRESS WITH SITTER PRESENT.
[2022-04-18 14:00] VITALS: BP 126/91; PULSE 89; RESP 16; TEMP 36.6; O2SAT 97
[2022-04-18] MEDS: ibuprofen 600 mg Tablet PO (16:29)
--- NOTE | 2022-04-18 17:10 | P.NPUPN_ITS ---
Subjective NPU Subjective: Patient is a 32-year-old white female with mild cognitive impairment on multiple psychiatric medications with poor impulse control admitted with suicidal thoughts and unsafe behavior while residing in the [facility]. The patient remains on a one-to-one at this time and required being placed in seclusion room today. She continued to engage in self-injurious behavior and she has been forced to eat finger foods only as she had repeatedly attempted to cut herself with cooking utensils. The patient reports that she feels the same . She reports that she wishes to return home. Patient c ontinues to remain provocative on the unit with increased magnification and increase in intensity of behaviors. Patient continued to report auditory hallucinations. She continues to require a one-to-one due to inability to remain safe during her waking time on the unit. She continues to struggle with completion of routine activities of daily living Mental Status Exam MSE Comments: This is an obese white female in hospital scrubs with poor grooming and poor eye contact. She was seen accompanied by her one-to-one on the unit. Speech is limited in productivity and decreased in volume. Mood described as bad Her affect is blunted. Thought process, minimally organized and superficial. Thought content: patient endorsed suicidal thoughts and minimized homicidal ideation . He reports continued paranoia but no delusions noted and endorses auditory hallucinations but no visual hallucinations. At tention and concentration is poor and memory appeared mostly reliable but was not formally tested. She is alert and oriented to person and place. Insight and judgment remain feeble. Impulse control is impaired. Intellectual ability is commensurate with mild cognitive impairment. Vitals/I&O/Wt Last Vital Signs Temp 97.9 F 04/18/22 14:00 Pulse 89 04/18/22 14:00 Resp 16 04/18/22 14:00 BP 126/91 04/18/22 14:00 Pulse Ox 97 04/18/22 14:00 O2 Del Method 04/18/22 14:00 Weight last 48 hrs Weight 94.529 kg Data NPU : 04/08/22 22:49 04/08/22 22:49 A&P Assessment and plan (1) Suicidal ideation: Status: Acute (2) Bipolar disorder: Status: Acute (3) Nocturnal enuresis: Status: Acute (4) Nightmares: Status: Acute (5) Intellectual disability: Status: Acute Plan This is a 32 year old white female with a history of trauma, auditory hallucinations and genetic loading for mental health and addiction issues who presents with worsening auditory hallucinations reporting these voices encourage suicidal and homicidal ideation, active suicidal ideation and paranoia but reporting she believes she is fine to be discharged at this time. 1. Continue lithium, clozaril, and depakote. Continue buspar at 15mg tid to target self injurious behavior. Clozaril level pending. Depakote/[place] therapeutic range on labs. Discontinue metoprolol and start propranolol at 20mg bid to target aggression. 2. She appears less sedated in afternoon since discontinuation of thorazine and has been more redirectable but still requires 1-1. Monitor self and quantify self injurious behavior, attempts at elopement and aggression on milieu. 3. Encourage individual, group and milieu therapy. We continue to use prn medications such as geodon. 4. Continue one-to-one for safety given her intermittent reports of inability to keep her self safe on the unit. She continues to show evidence of cluster B traits and this appears largely behavioral and not amenable to treatment in an acute care inpatient setting. She will require residential placement when available. Involuntary Hold Information 96 Hour Hold: 96 Hour Involuntary Admission: No Attestations NPU Medical Necessity Statement*: Inpatient hospitalization is medically necessary and the clinically appropriate intervention at this time. We will monitor med ications and make changes as indicated. Likely length of stay is five to ten days. Coding Level of Care Code Established Pt Acute [employer] Infrastructure Consultant for Yannickg Fwd Patient Type Established History Problem Focused Exam Problem Focused Medical Decision Making Straight Forward Diagnoses Suicidal ideation R45.851 Bipolar disorder F31.9 Nocturnal enuresis N39.44 Nightmares F51.5 Intellectual disability F79
--- NOTE | 2022-04-18 18:18 | W.PM.BREST ---
Face to Face: Restrn/Seclusion Events leading up to initiation: Demonstrating self-destructive behavior (cutting, hitting soto etc.) Evaluation of patient's immediate situation: Alert and oriented and Signs of psychological distress Patient reaction since intervention applied: Behaviors/threats have lessened, but still present Recent labs reviewed: No Review of medications: Yes Patient's current medical/behavioral condition: No new concerns since last ROS Need for restraint or seclusion is: No longer present Attending notified: Attending completed assessment
[2022-04-18] MEDS: benztropine 1 mg Tablet PO (18:27)
[2022-04-18] MEDS: haloperidol 5 mg Tablet PO (18:27)
[2022-04-18] MEDS: efferdent effervescent 1 EACH DENTAL (18:55)
[2022-04-18] MEDS: trazodone 50 mg Tablet PO (20:10)
[2022-04-18] MEDS: amlodipine 5 mg Tablet PO (20:11)
[2022-04-18] MEDS: hyDROXYzine 25 mg Capsule 50 MG PO (20:12)
[2022-04-18 22:00] VITALS: RESP 18
[2022-04-19 07:31] VITALS: BP 122/83; PULSE 93; RESP 18; TEMP 37; O2SAT 95
[2022-04-19] MEDS: prenatal vitamin Capsule 1 CAP PO (08:04)
[2022-04-19] MEDS: cloZAPine 100 mg Tablet 200 MG PO ×2 (08:04→20:13)
[2022-04-19] MEDS: cholecalciferol (vitamin D3) 1,000 unit Tablet 1000 UNIT PO (08:04)
[2022-04-19] MEDS: pantoprazole DR 40 mg Tablet PO (08:04)
[2022-04-19] MEDS: BuSPIRONE 10 mg Tablet 15 MG PO ×3 (08:04→20:13)
[2022-04-19] MEDS: divalproex DR 250 mg Tablet 750 MG PO ×2 (08:05→20:14)
[2022-04-19] MEDS: haloperidol 5 mg Tablet PO ×2 (08:07→13:05)
[2022-04-19] MEDS: lithium carbonate ER 450 mg Tablet PO ×2 (08:07→20:13)
[2022-04-19] MEDS: benztropine 1 mg Tablet PO (08:07)
[2022-04-19] MEDS: oxybutynin 5 mg Tablet PO ×2 (08:07→20:13)
[2022-04-19] MEDS: cyanocobalamin 1,000 mcg Tablet 500 MCG PO (08:08)
[2022-04-19] MEDS: buPROPion XL (24 HR) 150 mg Tablet PO (08:08)
[2022-04-19] MEDS: loratadine 10 mg Tablet PO (08:09)
[2022-04-19] MEDS: levothyroxine 25 mcg Tablet PO (08:09)
[2022-04-19] MEDS: docusate sodium 100 mg Capsule PO ×2 (08:09→17:43)
[2022-04-19] MEDS: propranolol 20 mg Tablet PO ×2 (08:10→17:43)
[2022-04-19] MEDS: neomycin-poly-bacitracin oint 28 gm 1 APPLIC TOPICAL ×2 (08:10→17:44)
[2022-04-19] MEDS: OLANZapine 5 mg ODT PO ×3 (08:53→22:50)
[2022-04-19] MEDS: diphenhydrAMINE 50 mg Capsule PO ×2 (09:46→13:05)
[2022-04-19] MEDS: ibuprofen 600 mg Tablet PO (12:03)
[2022-04-19 13:51] VITALS: RESP 16
--- NOTE | 2022-04-19 18:19 | W.PM.NPUPNS ---
Subjective NPU Subjective: Patient is a 32-year-old white female with mild cognitive impairment on multiple psychiatric medications with poor impulse control admitted with suicidal thoughts and unsafe behavior while residing in the long term. The patient remains on a one-to-one at this time on the unit. She had been less aggressive but continue to remain impulsive. She reports that she has been feeling a little better today. She had reported improved sleep and stated that she was more hopeful about returning back to the long term. Patient reported no thoughts of hurting herself today. Continued to require redirection and was minimally engaged in any milieu activities. Patient had been able to complete routine activities of daily living. Mental Status Exam MSE Comments: This is an obese white female in hospital scrubs with poor grooming and poor eye contact. She was seen accompanied by her one-to-one on the unit. Speech is limited in productivity and decreased in volume. Mood described as better Her affect remained flat. Thought process, minimally organized and superficial. Thought content: patient endorsed suicidal thoughts and minimized homicidal ideation . He reports continued paranoia but no delusions noted and endorses auditory hallucinations but no visual hallucinations. Attention and concentration is poor and memory appeared mostly reliable but was not formally tested. She is alert and oriented to person and place. Insight and judgment remain feeble. Impulse control is impaired. Intellectual ability is commensurate with mild cognitive impairment. Vitals/I&O/Wt Last Vital Signs Temp 98.6 F 04/19/22 07:31 Pulse 93 04/19/22 07:31 Resp 16 04/19/22 13:51 BP 122/83 04/19/22 07:31 Pulse Ox 95 04/19/22 07:31 O2 Del Method 04/19/22 07:31 Data NPU : 04/08/22 22:49 04/08/22 22:49 A&P Assessment and plan (1) Suicidal ideation: Status: Acute (2) Bipolar disorder: Status: Acute (3) Nocturnal enuresis: Status: Acute (4) Nightmares: Status: Acute (5) Intellectual disability: Status: Acute Plan This is a 32 year old white female with a history of trauma, auditory hallucinations and genetic loading for mental health and addiction issues who presents with worsening auditory hallucinations reporting these voices encourage suicidal and homicidal ideation, active suicidal ideation and paranoia but reporting she believes she is fine to be discharged at this time. 1. Continue lithium, clozaril, and depakote. Continue buspar at 15mg tid to target self injurious behavior. Clozaril level pending. Depakote/[place] therapeutic range on labs. Discontinued metoprolol and continue propranolol at 20mg bid to target aggression. 2. She appears less sedated in afternoon since discontinuation of thorazine and has been more redirectable but still requires 1-1. Monitor self and quantify self injurious behavior, attempts at elopement and aggression on milieu. 3. Encourage individual, group and milieu therapy. We continue to use prn medications such as geodon. 4. Continue one-to-one for safety given her intermittent reports of inability to keep her self safe on the unit. She continues to show evidence of cluster B traits and this appears largely behavioral and not amenable to treatment in an acute care inpatient setting. She will require residential placement when available. Involuntary Hold Information 96 Hour Hold: 96 Hour Involuntary Admission: No Attestations NPU Medical Necessity Statement*: Inpatient hospitalization is medically necessary and the clinically appropriate intervention at this time. We will monitor medications and make changes as indicated. Likely length of stay is five to ten days. Coding Level of Care Code Established Pt Acute Legal Activity Adjudicator for Yannickg Fwd Patient Type Established History Problem Focused Exam Problem Focused Medical Decision Making Straight Forward Diagnoses Suicidal ideation R45.851 Bipolar disorder F31.9 Nocturnal enuresis N39.44 Nightmares F51.5 Intellectual disability F79
[2022-04-19] MEDS: amlodipine 5 mg Tablet PO (20:13)
[2022-04-19] MEDS: trazodone 50 mg Tablet PO (20:14)
[2022-04-19] MEDS: hyDROXYzine 25 mg Capsule 50 MG PO (20:14)
[2022-04-19 22:00] VITALS: BP 127/84; PULSE 90; RESP 16; TEMP 37; O2SAT 97
[2022-04-20] MEDS: OLANZapine 5 mg ODT PO ×2 (03:59→22:55)
--- NOTE | 2022-04-20 03:59 | PC.NURSE ---
Zyprexa Zydus 5mg PO given for AH / psychosis.
[2022-04-20 06:00] VITALS: RESP 18
[2022-04-20] MEDS: cholecalciferol (vitamin D3) 1,000 unit Tablet 1000 UNIT PO (08:33)
[2022-04-20] MEDS: pantoprazole DR 40 mg Tablet PO (08:33)
[2022-04-20] MEDS: buPROPion XL (24 HR) 150 mg Tablet PO (08:33)
[2022-04-20] MEDS: docusate sodium 100 mg Capsule PO ×2 (08:33→18:07)
[2022-04-20] MEDS: BuSPIRONE 10 mg Tablet 15 MG PO ×3 (08:33→20:12)
[2022-04-20] MEDS: prenatal vitamin Capsule 1 CAP PO (08:33)
[2022-04-20] MEDS: loratadine 10 mg Tablet PO (08:33)
[2022-04-20] MEDS: divalproex DR 250 mg Tablet 750 MG PO ×2 (08:34→20:13)
[2022-04-20] MEDS: cyanocobalamin 1,000 mcg Tablet 500 MCG PO (08:34)
[2022-04-20] MEDS: levothyroxine 25 mcg Tablet PO (08:34)
[2022-04-20] MEDS: cloZAPine 100 mg Tablet 200 MG PO ×2 (08:34→20:13)
[2022-04-20] MEDS: oxybutynin 5 mg Tablet PO ×2 (08:34→20:13)
[2022-04-20] MEDS: lithium carbonate ER 450 mg Tablet PO ×2 (08:34→20:13)
[2022-04-20] MEDS: propranolol 20 mg Tablet PO ×2 (08:34→18:07)
[2022-04-20] MEDS: ibuprofen 600 mg Tablet PO (09:08)
[2022-04-20] MEDS: neomycin-poly-bacitracin oint 28 gm 1 APPLIC TOPICAL ×2 (09:31→18:07)
[2022-04-20] MEDS: ondansetron 4 MG Tablet PO (13:30)
--- NOTE | 2022-04-20 13:34 | PC.NURSE ---
AFTER LUNCH PT APPROACHED NURSES STATION WITH ONE TO ONE PRESENT, PT REPORTS SHE IS SICK TO MY STOMACH , PRN ZOFRAN GIVE, APPROX 5 MIN AFTER ADMIN OF ZOFRAN, GERMAN CALLED TO STAFF TO REPORT PT VOMITING IN BATHROOM, PT ASSESSED BY THIS NURSE, PT IS ABLE TO WALK TO BED, REPORT SHE IS STILL FEELING NAUSEOUS, READMIN ZOFRAN PO DUE TO PT NOT ABSORBING MED WHEN GIVEN 5 MIN PRIOR TO VOMITING. PT GIVEN WASHCLOTH AND ASSISTED WITH ORAL CARE AND CLEANING OF SELF. PT GIVEN WATER AND INSTRUCTED TO TAKE SMALL SIPS, PT VERB UNDERSTANDING. SITTER INSTUCT TO ALERT STAFF IF PT VOMITS OR HAS INCREASING S/S
[2022-04-20 14:00] VITALS: BP 138/79; PULSE 88; RESP 18; TEMP 36.7; O2SAT 97
[2022-04-20] MEDS: haloperidol 5 mg Tablet PO (14:50)
[2022-04-20] MEDS: diphenhydrAMINE 50 mg Capsule PO (14:50)
--- NOTE | 2022-04-20 17:24 | W.PM.NPUPNS ---
Subjective NPU Subjective: Patient is a 32-year-old white female with mild cognitive impairment on multiple psychiatric medications with poor impulse control admitted with suicidal thoughts and unsafe behavior while residing in the [facility]. The patient remains on a one-to-one at this time on the unit. The patient had no episodes of self injury on one-to-one today and reports that she has been feeling better. She reports having a conversation with her mother and states that she was hopeful about returning to the [facility]. She reported that she continued to have auditory hallucinations but stated that she did not know what they were saying. She had continued again to engage in activities of daily living with completion of showering and brushing today. She reports no sleep continuity disruption last night. Mental Status Exam MSE Comments: This is an obese white female in hospital scrubs with adequate grooming and improved eye contact. She was seen accompanied by her one-to-one on the unit. Speech is limited in productivity and decreased in volume, and nonspontaneous. Mood described as good Her affect remained flat and mood incongruent. Thought process was minimally organized and superficial. Thought content: patient endorsed no suicidal thoughts and minimized homicidal ideation. She endorses auditory hallucinations but no visual hallucinations. Attention and concentration is poor and memory appeared mostly reliable but was not formally tested. She is alert and oriented to person and place. Insight was poor and judgment remained feeble. Impulse control is impaired. Intellectual ability is commensurate with mild cognitive impairment. Vitals/I&O/Wt Last Vital Signs Temp 98.0 F 04/20/22 14:00 Pulse 88 04/20/22 14:00 Resp 18 04/20/22 14:00 BP 138/79 04/20/22 14:00 Pulse Ox 97 04/20/22 14:00 O2 Del Method 04/20/22 14:00 Data NPU : 04/08/22 22:49 04/08/22 22:49 A&P Assessment and plan (1) Suicidal ideation: Status: Acute (2) Bipolar disorder: Status: Acute (3) Nocturnal enuresis: Status: Acute (4) Nightmares: Status: Acute (5) Intellectual disability: Status: Acute Plan This is a 32 year old white female with a history of trauma, auditory hallucinations and genetic loading for mental health and addiction issues who presents with worsening auditory hallucinations reporting these voices encourage suicidal and homicidal ideation, active suicidal ideation and paranoia but reporting she believes she is fine to be discharged at this time. 1. Continue lithium, clozaril, and depakote. Continue buspar at 15mg tid to target self injurious behavior. Clozaril level pending. Depakote/[place] therapeutic range on labs. Discontinued metoprolol and continue propranolol at 20mg bid to target aggression. 2. She appears less sedated in afternoon since discontinuation of thorazine and has been more redirectable but still requires 1-1. Monitor self and quantify self injurious behavior, attempts at elopement and aggression on milieu. 3. Encourage individual, group and milieu therapy. We continue to use prn medications such as geodon. 4. Continue one-to-one for safety given her intermittent reports of inability to keep her self safe on the unit. She continues to show evidence of cluster B traits and this appears largely behavioral and not amenable to treatment in an acute care inpatient setting. She will require residential placement when available. Involuntary Hold Information 96 Hour Hold: 96 Hour Involuntary Admission: No Attestations NPU Medical Necessity Statement*: Inpatient hospitalization is medically necessary and the clinically appropriate intervention at this time. We will monitor medications and make changes as indicated. Likely length of stay is three to five days. Coding Level of Care Code Established Pt Acute Isobutylene Operator Chief for Rob Fwosvaldo Patient Type Established History Problem Focused Exam Problem Focused Medical Decision Making Straight Forward Diagnoses Suicidal ideation R45.851 Bipolar disorder F31.9 Nocturnal enuresis N39.44 Nightmares F51.5 Intellectual disability F79
[2022-04-20] MEDS: trazodone 50 mg Tablet PO (20:13)
[2022-04-20] MEDS: amlodipine 5 mg Tablet PO (20:13)
[2022-04-20] MEDS: hyDROXYzine 25 mg Capsule 50 MG PO (20:13)
[2022-04-20 22:00] VITALS: BP 132/68; PULSE 89; RESP 15; TEMP 37.2; O2SAT 97
[2022-04-21] MEDS: docusate sodium 100 mg Capsule PO ×2 (08:37→17:53)
[2022-04-21] MEDS: prenatal vitamin Capsule 1 CAP PO (08:37)
[2022-04-21] MEDS: cyanocobalamin 1,000 mcg Tablet 500 MCG PO (08:37)
[2022-04-21] MEDS: propranolol 20 mg Tablet PO ×2 (08:37→17:53)
[2022-04-21] MEDS: pantoprazole DR 40 mg Tablet PO (08:38)
[2022-04-21] MEDS: oxybutynin 5 mg Tablet PO ×2 (08:38→20:55)
[2022-04-21] MEDS: cholecalciferol (vitamin D3) 1,000 unit Tablet 1000 UNIT PO (08:38)
[2022-04-21] MEDS: levothyroxine 25 mcg Tablet PO (08:38)
[2022-04-21] MEDS: buPROPion XL (24 HR) 150 mg Tablet PO (08:38)
[2022-04-21] MEDS: loratadine 10 mg Tablet PO (08:39)
[2022-04-21] MEDS: BuSPIRONE 10 mg Tablet 15 MG PO ×3 (08:39→20:54)
[2022-04-21] MEDS: divalproex DR 250 mg Tablet 750 MG PO ×2 (08:39→20:54)
[2022-04-21] MEDS: cloZAPine 100 mg Tablet 200 MG PO ×2 (08:39→20:55)
[2022-04-21] MEDS: lithium carbonate ER 450 mg Tablet PO ×2 (08:39→20:54)
[2022-04-21] MEDS: neomycin-poly-bacitracin oint 28 gm 1 APPLIC TOPICAL ×2 (08:41→16:28)
[2022-04-21 09:07] LABS: Clozapine Result 212 mcg/L; Norclozapine Results 77 mcg/L (25-400)
--- NOTE | 2022-04-21 11:09 | P.NPUPN_ITS ---
Subjective NPU Subjective: Patient presents today reporting that she was understand that the treatment team is searching for appropriate discharge locations. She endorses being happy about that. She continues on one-to-one and we had our session as she paced with reasonable pace. We discussed discontinuing one-to-one soon mostly had some sense of when placement might occur. Mental Status Exam MSE Comments: This is an obese white female in hospital scrubs with adequate grooming and improved eye contact. She was seen accompanied by her one-to-one on the unit. Speech is limited in productivity and decreased in volume, and nonspontaneous. Mood described as good Her affect remained flat and mood incongruent. Thought process was minimally organized and superficial. Thought content: patient endorsed no suicidal thoughts and denied homicidal ideation. She endorses auditory hallucinations but no visual hallucinations. Attention and concentration is poor and memory appeared mostly reliable but was not formally tested. She is alert and oriented to person and place. Insight was poor and judgment remained limited. Impulse control is impaired. Intellectual ability is commensurate with mild intellectual disability. Vitals/I&O/Wt Last Vital Signs Temp 98.9 F 04/20/22 22:00 Pulse 89 04/20/22 22:00 Resp 15 04/20/22 22:00 BP 132/68 04/20/22 22:00 Pulse Ox 97 04/20/22 22:00 O2 Del Method 04/20/22 22:00 Data NPU : 04/08/22 22:49 04/08/22 22:49 A&P Assessment and plan (1) Suicidal ideation: Status: Acute (2) Bipolar disorder: Status: Acute (3) Nocturnal enuresis: Status: Acute (4) Nightmares: Status: Acute (5) Intellectual disability: Status: Acute Plan This is a 32 year old white female with a history of trauma, auditory hallucinations and genetic loading for mental health and addiction issues who presents with worsening auditory hallucinations reporting these voices encourage suicidal and homicidal ideation, active suicidal ideation and paranoia but reporting she believes she is fine to be discharged at this time. 1. Continue lithium, clozaril, and depakote. Continue buspar at 15mg tid to target self injurious behavior. Clozaril level pending. Depakote/[place] therapeutic range on labs. Discontinued metoprolol and continue propranolol at 20mg bid to target aggression. 2. She appears less sedated in afternoon since discontinuation of thorazine and has been more redirectable but still requires 1-1. Monitor self and quantify self injurious behavior, attempts at elopement and aggression on milieu. 3. Encourage individual, group and milieu therapy. We continue to use prn medications such as geodon. 4. Continue one-to-one for safety given her intermittent reports of inability to keep her self safe on the unit. She continues to show evidence of cluster B traits and this appears largely behavioral and not amenable to treatment in an acute care inpatient setting. She will require residential placement when available. 5. We will determine time staffing is appropriate to take her off of the one-to-one. Involuntary Hold Information 96 Hour Hold: 96 Hour Involuntary Admission: No Attestations NPU Medical Necessity Statement*: Inpatient hospitalization is medically necessary and the clinically appropriate intervention at this time. We will monitor med ications and make changes as indicated. Likely length of stay is three to five days. Coding Level of Care Code Acute [employer] Clerk for Rob Fwd Diagnoses Suicidal ideation R45.851 Bipolar disorder F31.9 Nocturnal enuresis N39.44 Nightmares F51.5 Intellectual disability F79
[2022-04-21] MEDS: OLANZapine 5 mg ODT PO ×2 (12:30→20:55)
--- NOTE | 2022-04-21 12:30 | PC.NURSE ---
PRN ZYPREXA ZYDIS 5 MG GIVEN PO PER PT C/O HEARING VOICES
--- NOTE | 2022-04-21 12:51 | PC.NURSE ---
NEW ORDERS PT C/O CONSTIPATION AND CAN'T REMEMBER WHEN SHE HAD A BM LAST. PT TOLD THIS RN THIS AM IT WAS TODAY OR YESTERDAY AND NOW CAN'T REMEMBER. NEW ORDER RECEIVED FOR MOM 30 MLS PO DAILY PRN. BS ARE ACTIVE IN ALL QUADRANTS, NON TENDER AND NO DISTENSION IS NOTED AT THIS TIME
[2022-04-21] MEDS: magnesium hydroxide 30 mL UDC PO (13:19)
[2022-04-21 14:00] VITALS: BP 119/79; PULSE 96; RESP 18; TEMP 37.1; O2SAT 96
[2022-04-21] MEDS: haloperidol 5 mg Tablet PO (18:29)
[2022-04-21] MEDS: hyDROXYzine 25 mg Capsule 50 MG PO (18:29)
--- NOTE | 2022-04-21 18:30 | PC.NURSE ---
PRN MEDICATION PT UP AT NURSES STATION REQUESTING SOMETHING FOR ANXIETY. PT STATES I'M VERY AGITATED AND WANT TO GO HOME. PT WAS GIVEN HALDOL AND VISTARIL ORDERED AND PRAISED FOR HER GOOD BEHAVIOR TODAY.
[2022-04-21] MEDS: amlodipine 5 mg Tablet PO (20:54)
[2022-04-21] MEDS: trazodone 50 mg Tablet PO (20:55)
[2022-04-21 21:56] VITALS: BP 123/86; PULSE 93; RESP 16; TEMP 36.9; O2SAT 92
[2022-04-22 06:00] VITALS: RESP 18
[2022-04-22] MEDS: cloZAPine 100 mg Tablet 200 MG PO ×2 (09:07→20:47)
[2022-04-22] MEDS: divalproex DR 250 mg Tablet 750 MG PO ×2 (09:07→20:47)
[2022-04-22] MEDS: buPROPion XL (24 HR) 150 mg Tablet PO (09:08)
[2022-04-22] MEDS: levothyroxine 25 mcg Tablet PO (09:08)
[2022-04-22] MEDS: oxybutynin 5 mg Tablet PO ×2 (09:08→20:47)
[2022-04-22] MEDS: cholecalciferol (vitamin D3) 1,000 unit Tablet 1000 UNIT PO (09:08)
[2022-04-22] MEDS: loratadine 10 mg Tablet PO (09:08)
[2022-04-22] MEDS: pantoprazole DR 40 mg Tablet PO (09:08)
[2022-04-22] MEDS: propranolol 20 mg Tablet PO ×2 (09:08→17:33)
[2022-04-22] MEDS: prenatal vitamin Capsule 1 CAP PO (09:09)
[2022-04-22] MEDS: BuSPIRONE 10 mg Tablet 15 MG PO ×3 (09:09→20:47)
[2022-04-22] MEDS: lithium carbonate ER 450 mg Tablet PO ×2 (09:09→20:47)
[2022-04-22] MEDS: cyanocobalamin 1,000 mcg Tablet 500 MCG PO (09:09)
--- NOTE | 2022-04-22 09:24 | PC.NURSE ---
Nursing Assessment Patient resting in bed. Patient states she slept well last night and isn't in any pain this morning. Denies any homicidal ideations. She states she is still having suicidal thoughts and is having auditory hallucinations that are telling her to kill herself. Denies any visual hallucinations. Patient states she is anxious and this RN is going to administer meds immediately after assessment.
[2022-04-22] MEDS: docusate sodium 100 mg Capsule PO ×2 (13:31→17:33)
[2022-04-22] MEDS: haloperidol 5 mg Tablet PO ×2 (13:35→21:05)
[2022-04-22] MEDS: hyDROXYzine 25 mg Capsule 50 MG PO (13:35)
--- NOTE | 2022-04-22 13:37 | PC.NURSE ---
PRN MEDICATION PT UP AT NURSES STATION REQUESTING ANXIETY MEDICATIONS DUE TO INCREASED AGITATION DUE TO HAVING A SITTER. PT STATES SHE WANTS TO GO HOME AND DOES NOT WANT A SITTER. EDUCATION WAS PROVIDED, PT UNABLE TO EDUCATE DUE TO ANXIETY AND BEING UPSET AT STAFF. SUPPORT WAS VOICED.
[2022-04-22 14:00] VITALS: BP 132/84; PULSE 79; RESP 20; TEMP 36.8; O2SAT 96
[2022-04-22] MEDS: OLANZapine 5 mg ODT PO (16:19)
[2022-04-22] MEDS: diphenhydrAMINE 50 mg Capsule PO (16:19)
--- NOTE | 2022-04-22 17:23 | W.PM.NPUPNS ---
Subjective NPU Subjective: Patient presented today much more goal-directed. She was asking about discharge and when she was going off one-to-one so that she can work towards discharge. She was asking about specific places that she might go and we discussed the fact that her behavior prior to now has led to many locations possibly not being interested in offering her a spot. Stressed with her that her choices dictate other people's impression of her. Discussed a trial off one-to-one in the morning. Mental Status Exam MSE Comments: This is an obese white female in hospital scrubs with adequate grooming and improved eye contact. She was seen accompanied by her one-to-one on the unit. Speech is limited in productivity and decreased in volume, but more spontaneous. Mood described as good Her affect seemed brighter and mood incongruent. Thought process was mostly organized. Thought content: patient endorsed no suicidal thoughts and denied homicidal ideation. She endorses auditory hallucinations but no visual hallucinations. Attention and concentration is improving and memory appeared mostly reliable but was not formally tested. She is alert and oriented x3. Insight was limited but improving and judgment improving. Impulse control is appears improving. Intellectual ability is commensurate with mild intellectual disability. 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 1. Continue lithium, clozaril, and depakote. Continue buspar at 15mg tid to target self injurious behavior. Clozaril level pending. Depakote/[place] therapeutic range on labs. Discontinued metoprolol and continue propranolol at 20mg bid to target aggression. 2. She appears less sedated in afternoon since discontinuation of thorazine and has been more redirectable but still requires 1-1. Monitor self and quantify self injurious behavior, attempts at elopement and aggression on milieu. 3. Encourage individual, group and milieu therapy. We continue to use prn medications such as geodon. 4. Continue one-to-one for safety given her intermittent reports of inability to keep her self safe on the unit. She continues to show evidence of cluster B traits and this appears largely behavioral and not amenable to treatment in an acute care inpatient setting. She will require residential placement when available. 5. We will take her off one-to-one in the morning. Involuntary Hold Information 96 Hour Hold: 96 Hour Involuntary Admission: No Attestations NPU Medical Necessity Statement*: Inpatient hospitalization is medically necessary and the clinically appropriate intervention at this time. We will monitor medications and make changes as indicated. Likely length of stay is 2-4 days. Coding Level of Care Code Acute Financial Services Education Consultant for Rob Matson Diagnoses Suicidal ideation R45.851 Bipolar disorder F31.9 Nocturnal enuresis N39.44 Nightmares F51.5 Intellectual disability F79
[2022-04-22 19:18] VITALS: BP 113/82; PULSE 96; RESP 18; TEMP 37.1; O2SAT 96
[2022-04-22] MEDS: amlodipine 5 mg Tablet PO (20:47)
--- NOTE | 2022-04-22 22:38 | PC.NURSE ---
PRN MED PT GIVEN 5MG HALDOL FOR AGITATION/ANXIETY, WILL CONTINUE TO MONITOR.
[2022-04-23] MEDS: propranolol 20 mg Tablet PO ×2 (08:41→16:59)
[2022-04-23] MEDS: loratadine 10 mg Tablet PO (08:41)
[2022-04-23] MEDS: cloZAPine 100 mg Tablet 200 MG PO ×2 (08:41→20:18)
[2022-04-23] MEDS: pantoprazole DR 40 mg Tablet PO (08:41)
[2022-04-23] MEDS: oxybutynin 5 mg Tablet PO ×2 (08:41→20:17)
[2022-04-23] MEDS: divalproex DR 250 mg Tablet 750 MG PO ×2 (08:41→20:18)
[2022-04-23] MEDS: docusate sodium 100 mg Capsule PO ×2 (08:41→16:59)
[2022-04-23] MEDS: buPROPion XL (24 HR) 150 mg Tablet PO (08:41)
[2022-04-23] MEDS: lithium carbonate ER 450 mg Tablet PO ×2 (08:42→20:17)
[2022-04-23] MEDS: haloperidol 5 mg Tablet PO ×3 (08:42→18:37)
[2022-04-23] MEDS: BuSPIRONE 10 mg Tablet 15 MG PO ×3 (08:42→20:18)
[2022-04-23] MEDS: prenatal vitamin Capsule 1 CAP PO (08:42)
[2022-04-23] MEDS: cholecalciferol (vitamin D3) 1,000 unit Tablet 1000 UNIT PO (08:43)
[2022-04-23] MEDS: benztropine 1 mg Tablet PO (08:43)
[2022-04-23] MEDS: cyanocobalamin 1,000 mcg Tablet 500 MCG PO (08:43)
[2022-04-23] MEDS: levothyroxine 25 mcg Tablet PO (08:43)
[2022-04-23] MEDS: neomycin-poly-bacitracin oint 28 gm 1 APPLIC TOPICAL ×2 (08:44→17:00)
--- NOTE | 2022-04-23 09:51 | PC.NURSE ---
ONE ON ONE ONE ON ONE WAS DISCONTINUED AT 0950 AM. PT WAS EDUCATED ON DISCONTINUING ONE ON ONE AND THAT STAFF WOULD BE CHECKING ON HER FREQUENTLY. PT WAS CONTRACTED FOR SAFETY AND STATES SHE WILL NOT HURT HERSELF OR RUN OUT THE DOORS. PT VERBALIZES UNDERSTANDING THAT TO DC FROM NPU SHE HAS TO BE ABLE TO CONTROL HER IMPULSES AND NOT HARM HERSELF AND RUN. PT IN BED RESTING AT THIS TIME. STAFF WAS NOTIFIED OF ONE ON ONE DISCONTINUATION. ALL QUESTIONS ANSWERED AND SUPPORT VOICED.
[2022-04-23] MEDS: hyDROXYzine 25 mg Capsule 50 MG PO (12:26)
[2022-04-23] MEDS: OLANZapine 5 mg ODT PO (12:26)
--- NOTE | 2022-04-23 12:39 | W.PM.NPUPNS ---
Subjective NPU Subjective: Patient presents today continuing to be focused on discharge. We continue to focus on what she can do to get to a discharge which is to continue to represent her self well as we took her off one-to-one today. She had no major changes in the short observation time after being taken off of one-to-one and continue to report her desire to get to some placement which will be good for so she reports she will maintain her self. Mental Status Exam MSE Comments: This is an obese white female in hospital scrubs with adequate grooming and improved eye contact. She was seen accompanied by her one-to-one on the unit. Speech is limited in productivity and decreased in volume, but more spontaneous. Mood described as good Her affect seemed brighter. Thought process was mostly organized. Thought content: patient endorsed no suicidal thoughts and denied homicidal ideation. She endorses diminishing auditory hallucinations but no visual hallucinations. Attention and concentration is improving and memory appeared mostly reliable but was not formally tested. She is alert and oriented x3. Insight was limited but improving and judgment improving. Impulse control is appears improving. Intellectual ability is commensurate with mild intellectual disability. 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 1. Continue lithium, clozaril, and depakote. Continue buspar at 15mg tid to target self injurious behavior. Clozaril level pending. Depakote/[place] therapeutic range on labs. Discontinued metoprolol and continue propranolol at 20mg bid to target aggression. 2. She appears less sedated in afternoon since discontinuation of thorazine and has been more redirectable but still requires 1-1. Monitor self and quantify self injurious behavior, attempts at elopement and aggression on milieu. 3. Encourage individual, group and milieu therapy. We continue to use prn medications such as geodon. 4. Continue one-to-one for safety given her intermittent reports of inability to keep her self safe on the unit. She continues to show evidence of cluster B traits and this appears largely behavioral and not amenable to treatment in an acute care inpatient setting. She will require residential placement when available. 5. Patient taken off of one-to-one. Involuntary Hold Information 96 Hour Hold: 96 Hour Involuntary Admission: No Attestations NPU Medical Necessity Statement*: Inpatient hospitalization is medically necessary and the clinically appropriate intervention at this time. We will monitor medications and make changes as indicated. Likely length of stay is 2-4 days. 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
--- NOTE | 2022-04-23 12:45 | PC.NURSE ---
PRN MEDICATIONS PT UP TO NURSES STATION STATING SHE WANTS TO RUN AND IS ANXIOUS. HALL AND WAS GIVEN THIS AM IN AM MEDS. AT APPROXIMATELY 1230 PT CONTINUES TO STATE SHE IS ANXIOUS. VISTARIL AND ZYDIS WAS GIVEN. PT CONTINUES TO BE OFF HER ONE ON ONE AND HAS DONE WELL THUS FAR. PT CONTINUES TO STATE GOALS OF GOING HOME AND HAVING GOOD BEHAVIOR SO SHE CAN LEAVE SOON. PT WAS ENCOURAGED TO CONTINUE WITH GOOD BEHAVIOR AND LETTING STAFF KNOW WHEN SHE IS ANXIOUS, WANTING TO RUN OR NEEDS TO TALK SO SHE DOES NOT ACT OUT. ALL QUESTIONS ANSWERED AND SUPPORT VOICED.
[2022-04-23 14:00] VITALS: BP 121/74; PULSE 89; RESP 18; TEMP 37.1; O2SAT 95
[2022-04-23] MEDS: diphenhydrAMINE 50 mg Capsule PO ×2 (14:13→18:37)
--- NOTE | 2022-04-23 18:38 | PC.NURSE ---
PRN MEDICATION PT UP TO NURSES STATION REPORTS SHE IS ANXIOUS AND NERVOUS. HALDOL AND BENADRYL GIVEN ORDERED. PT CONTINUES TO PACE.
[2022-04-23 19:44] VITALS: BP 119/81; PULSE 88; RESP 16; TEMP 37.3; O2SAT 98
[2022-04-23] MEDS: trazodone 50 mg Tablet PO (20:17)
[2022-04-23] MEDS: amlodipine 5 mg Tablet PO (20:18)
[2022-04-23 22:00] VITALS: BP 119/81; PULSE 88; RESP 16; TEMP 37.3; O2SAT 98
[2022-04-24 06:00] VITALS: BP 119/81; PULSE 88; RESP 16; TEMP 37.3; O2SAT 98; BMI 33.6
[2022-04-24 06:24] VITALS: BP 114/57; PULSE 80; RESP 17; TEMP 36.6; O2SAT 96
[2022-04-24] MEDS: pantoprazole DR 40 mg Tablet PO (09:26)
[2022-04-24] MEDS: BuSPIRONE 10 mg Tablet 15 MG PO ×3 (09:26→20:19)
[2022-04-24] MEDS: diphenhydrAMINE 50 mg Capsule PO (09:26)
[2022-04-24] MEDS: cholecalciferol (vitamin D3) 1,000 unit Tablet 1000 UNIT PO (09:26)
[2022-04-24] MEDS: prenatal vitamin Capsule 1 CAP PO (09:26)
[2022-04-24] MEDS: loratadine 10 mg Tablet PO (09:26)
[2022-04-24] MEDS: levothyroxine 25 mcg Tablet PO (09:27)
[2022-04-24] MEDS: propranolol 20 mg Tablet PO ×2 (09:27→17:47)
[2022-04-24] MEDS: oxybutynin 5 mg Tablet PO ×2 (09:27→20:19)
[2022-04-24] MEDS: divalproex DR 250 mg Tablet 750 MG PO ×2 (09:28→20:18)
[2022-04-24] MEDS: docusate sodium 100 mg Capsule PO ×2 (09:28→17:47)
[2022-04-24] MEDS: cloZAPine 100 mg Tablet 200 MG PO ×2 (09:28→20:18)
[2022-04-24] MEDS: buPROPion XL (24 HR) 150 mg Tablet PO (09:28)
[2022-04-24] MEDS: lithium carbonate ER 450 mg Tablet PO ×2 (09:28→20:19)
[2022-04-24] MEDS: haloperidol 5 mg Tablet PO ×2 (09:29→13:53)
[2022-04-24] MEDS: benztropine 1 mg Tablet PO (09:29)
[2022-04-24] MEDS: cyanocobalamin 1,000 mcg Tablet 500 MCG PO (09:29)
--- NOTE | 2022-04-24 09:56 | PC.NURSE ---
PT CONTINUES TO BE OFF ONE ON ONE FOR 24 HOURS NOW. PT IS ABLE TO VERBALIZE NEEDS AND EXPRESS HOW SHE IS FEELING. PT WAS HAVING MILD ANXIETY THIS AM AND HEARING VOICES. HALDOL, BENADRYL AND COGENTIN WAS GIVEN ORDERED. PT IS COOPERATIVE AND IS ABLE TO BE VERBALLY REDIRECTED. PT IS ALSO ABLE TO COME TO STAFF AND PROCESS HER FEELINGS AND WORK THROUGH HER ANXIETY AND VOICES. PT SOCIALIZING WITH STAFF AND PEERS MORE OFTEN AND IS APPROPRIATE. ALL QUESTIONS ANSWERED AND SUPPORT VOICED.
[2022-04-24] MEDS: blistex lip oint 7 gm Tube 1 APPLIC TOPICAL (13:46)
[2022-04-24 14:00] VITALS: BP 109/71; PULSE 89; RESP 18; TEMP 37; O2SAT 97
--- NOTE | 2022-04-24 14:14 | PC.NURSE ---
PRN Meds Patient approached nurse's station and stated she was beginning to hear voices telling her to hurt herself. Haldol was administered at 1353.
--- NOTE | 2022-04-24 16:48 | W.PM.NPUPNS ---
Subjective NPU Subjective: Patient presents today continuing her pattern of some control in a very agitated milieu. She continues to focus on discharge and where she might go. We continue to support her to behavior and encouraged her to maintain her current stature so that more places will identify that she will be functional in their facility. No other issues reported or noted. Mental Status Exam MSE Comments: This is an obese white female in hospital scrubs with adequate grooming and improved eye contact. Speech is more spontaneous and decreased rate and volume. Mood described as good Her affect seemed brighter. Thought process was mostly organized. Thought content: patient endorsed no suicidal thoughts and denied homicidal ideation. She endorses diminishing auditory hallucinations but no visual hallucinations. Attention and concentration is improving and memory appeared mostly reliable but was not formally tested. She is alert and oriented x3. Insight was limited but improving and judgment improving. Impulse control is appears improving. Intellectual ability is commensurate with mild intellectual disability. 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 1. Continue lithium, clozaril, and depakote. Continue buspar at 15mg tid to target self injurious behavior. Clozaril level pending. Depakote/[place] therapeutic range on labs. Discontinued metoprolol and continue propranolol at 20mg bid to target aggression. 2. She appears less sedated in afternoon since discontinuation of thorazine and has been more redirectable but still requires 1-1. Monitor self and quantify self injurious behavior, attempts at elopement and aggression on milieu. 3. Encourage individual, group and milieu therapy. We continue to use prn medications such as geodon. 4. Continue one-to-one for safety given her intermittent reports of inability to keep her self safe on the unit. She continues to show evidence of cluster B traits and this appears largely behavioral and not amenable to treatment in an acute care inpatient setting. She will require residential placement when available. 5. Patient taken off of one-to-one. Involuntary Hold Information 96 Hour Hold: 96 Hour Involuntary Admission: No Attestations NPU Medical Necessity Statement*: Inpatient hospitalization is medically necessary and the clinically appropriate intervention at this time. We will monitor medications and make changes as indicated. Likely length of stay is 2-4 days. Patient stabilizing and looking for appropriate placement which may be the chain regulating step. 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
[2022-04-24] MEDS: hyDROXYzine 25 mg Capsule 50 MG PO (17:49)
--- NOTE | 2022-04-24 18:37 | PC.NURSE ---
PRN MEDICATION PT AT NURSES STATION REQUESTS ANXIETY MED DUE TO HAVING FEELINGS OF ANXIETY. VISTARIL WAS GIVEN ORDERED.
[2022-04-24] MEDS: OLANZapine 5 mg ODT PO (19:12)
[2022-04-24] MEDS: efferdent effervescent 1 EACH DENTAL (19:43)
[2022-04-24 20:07] VITALS: BP 126/87; PULSE 100; RESP 18; TEMP 36.9; O2SAT 97
[2022-04-24] MEDS: amlodipine 5 mg Tablet PO (20:19)
[2022-04-24] MEDS: trazodone 50 mg Tablet PO (20:19)
[2022-04-25 06:00] VITALS: BP 115/74; PULSE 84; RESP 16; TEMP 36.3; O2SAT 96
[2022-04-25] MEDS: prenatal vitamin Capsule 1 CAP PO (08:12)
[2022-04-25] MEDS: pantoprazole DR 40 mg Tablet PO (08:12)
[2022-04-25] MEDS: levothyroxine 25 mcg Tablet PO (08:12)
[2022-04-25] MEDS: propranolol 20 mg Tablet PO ×2 (08:12→17:25)
[2022-04-25] MEDS: loratadine 10 mg Tablet PO (08:12)
[2022-04-25] MEDS: divalproex DR 250 mg Tablet 750 MG PO ×2 (08:12→20:10)
[2022-04-25] MEDS: buPROPion XL (24 HR) 150 mg Tablet PO (08:12)
[2022-04-25] MEDS: oxybutynin 5 mg Tablet PO ×2 (08:13→20:11)
[2022-04-25] MEDS: BuSPIRONE 10 mg Tablet 15 MG PO ×3 (08:13→20:09)
[2022-04-25] MEDS: cholecalciferol (vitamin D3) 1,000 unit Tablet 1000 UNIT PO (08:13)
[2022-04-25] MEDS: cyanocobalamin 1,000 mcg Tablet 500 MCG PO (08:13)
[2022-04-25] MEDS: cloZAPine 100 mg Tablet 200 MG PO ×2 (08:14→20:10)
[2022-04-25] MEDS: docusate sodium 100 mg Capsule PO ×2 (09:42→17:25)
[2022-04-25] MEDS: lithium carbonate ER 450 mg Tablet PO ×2 (09:43→20:11)
[2022-04-25 14:00] VITALS: BP 108/74; PULSE 88; RESP 16; TEMP 36.8; O2SAT 94
[2022-04-25] MEDS: OLANZapine 5 mg ODT PO (15:38)
--- NOTE | 2022-04-25 17:03 | W.PM.NPUPNS ---
Subjective NPU Subjective: Patient presents today reporting that things are going okay. She is somewhat frustrated about not having a place to go. We discussed that we feel she is ready to go and that in the face of multiple episodes by other individuals she has held together quite well. We discussed that the treatment team is sending out multiple referrals and just not getting any responses. She had been thinking that she would return to the placement she was at previously and we agreed to get referrals to any possibilities that we or she was aware of that appear to be viable options. She was happy to know that we were supportive of her moving forward. Mental Status Exam MSE Comments: This is an obese white female in hospital scrubs with adequate grooming and improved eye contact. Speech is more spontaneous and decreased rate and volume. Mood described as good Her affect seemed brighter but clearly frustrated at times that placement has not occurred. Thought process was mostly organized. Thought content: patient endorsed no suicidal thoughts and denied homicidal ideation. She endorses diminishing auditory hallucinations but no visual hallucinations. Attention and concentration is improving and memory appeared mostly reliable but was not formally tested. She is alert and oriented x3. Insight was limited but improving and judgment improving. Impulse control is appears improving. Intellectual ability is commensurate with mild intellectual disability. 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 1. Continue lithium, clozaril, and depakote. Continue buspar at 15mg tid to target self injurious behavior. Clozaril level pending. Depakote/[place] therapeutic range on labs. Discontinued metoprolol and continue propranolol at 20mg bid to target aggression. 2. She appears less sedated in afternoon since discontinuation of thorazine and has been more redirectable but still requires 1-1. Monitor self and quantify self injurious behavior, attempts at elopement and aggression on milieu. 3. Encourage individual, group and milieu therapy. We continue to use prn medications such as geodon. 4. Continue one-to-one for safety given her intermittent reports of inability to keep her self safe on the unit. She continues to show evidence of cluster B traits and this appears largely behavioral and not amenable to treatment in an acute care inpatient setting. She will require residential placement when available. 5. Patient taken off of one-to-one. Involuntary Hold Information 96 Hour Hold: 96 Hour Involuntary Admission: No Attestations NPU Medical Necessity Statement*: Inpatient hospitalization is medically necessary and the clinically appropriate intervention at this time. We will monitor medications and make changes as indicated. Likely length of stay is 1-3 days. Patient stabilizing and looking for appropriate placement which may be the chain regulating step. 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
[2022-04-25] MEDS: hyDROXYzine 25 mg Capsule 50 MG PO (17:25)
[2022-04-25 19:53] VITALS: BP 110/77; PULSE 65; RESP 18; TEMP 37.4; O2SAT 96
[2022-04-25] MEDS: amlodipine 5 mg Tablet PO (20:08)
[2022-04-25 21:08] VITALS: BP 110/77; PULSE 66; RESP 18; TEMP 37.4; O2SAT 96
[2022-04-26 06:00] VITALS: BP 114/69; PULSE 88; RESP 17; TEMP 36.6; O2SAT 94
[2022-04-26] MEDS: BuSPIRONE 10 mg Tablet 15 MG PO (09:00)
[2022-04-26] MEDS: prenatal vitamin Capsule 1 CAP PO (09:00)
[2022-04-26] MEDS: divalproex DR 250 mg Tablet 750 MG PO (09:00)
[2022-04-26] MEDS: levothyroxine 25 mcg Tablet PO (09:00)
[2022-04-26] MEDS: loratadine 10 mg Tablet PO (09:00)
[2022-04-26] MEDS: cholecalciferol (vitamin D3) 1,000 unit Tablet 1000 UNIT PO (09:00)
[2022-04-26] MEDS: cyanocobalamin 1,000 mcg Tablet 500 MCG PO (09:00)
[2022-04-26] MEDS: propranolol 20 mg Tablet PO (09:00)
[2022-04-26] MEDS: buPROPion XL (24 HR) 150 mg Tablet PO (09:00)
[2022-04-26] MEDS: lithium carbonate ER 450 mg Tablet PO (09:01)
[2022-04-26] MEDS: pantoprazole DR 40 mg Tablet PO (09:01)
[2022-04-26] MEDS: cloZAPine 100 mg Tablet 200 MG PO (09:01)
[2022-04-26] MEDS: oxybutynin 5 mg Tablet PO (09:01)
[2022-04-26] MEDS: docusate sodium 100 mg Capsule PO (09:01)
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
--- NOTE | 2022-04-26 11:30 | DCPLANNER ---
IMM completed and copy of rigths given to patients guardian, mom.
[2022-04-26 11:35] VITALS: BP 114/69; PULSE 88; RESP 17; TEMP 36.6; O2SAT 94
== END 2022-04-26 12:35 | disposition home or self-care (01) | DRG 885 ==
LOC: ER 04-09 01:06 → NP 04-09 01:21
PROVIDERS: Emergency Medicine; Psychiatry & Neurology Psychiatry; Admitting Provider Psychiatry & Neurology Psychiatry; Emergency Provider Emergency Medicine; Visit Provider Psychiatry & Neurology Psychiatry
DX: F25.0 Schizoaffective disorder, bipolar type (principal); R45.851 Suicidal ideations; F79 Unspecified intellectual disabilities; Z79.899 Other long term (current) drug therapy; Z87.891 Personal history of nicotine dependence; N39.44 Nocturnal enuresis; G31.84 Mild cognitive impairment of uncertain or unknown etiology
CPT/HCPCS: 80053; 80159; 80164; 80178; 80307; 81025; 85025; 96372; 97150; 97165; 99285; J1200; J1630; J2060; J2250; J3486; Q0161; Q0162; Q0163